=== PATIENT | male | born 1955 | race Caucasian/White ===

== ENCOUNTER 2018-04-25 21:25 | Inpatient (IN) | payer OTHER ==
[~2018-04-25] VITALS: Ht 185.4 cm; Wt 73.5 kg
--- NOTE | 2018-04-25 21:36 | ED UPPER/LOWER EXTREMITY COMPL ---
History of Present Illness General Chief Complaint: Upper Extremity Problem Stated Complaint: BIBA FROM SNF FOR R ARM "COLD TO TOUCH", Source: patient Exam Limitations: no limitations Vital Signs & Intake/Output Vital Signs & Intake/Output Vital Signs Date Time Temp Pulse Resp B/P B/P Pulse O2 O2 Flow FiO2 Mean Ox Delivery Rate 04/26 0548 98.5 105 20 144/73 100 Trach Mask 30% 04/26 0444 100 Trach Mask 40% 04/26 0405 97.2 104 20 162/84 98 Trach Mask 40% 04/26 0230 97.4 93 20 145/72 95 Trach Mask 10L 04/26 0032 97.5 93 20 139/76 95 Trach Mask 10L / 2300 97.2 92 20 142/86 95 Venti Mask 10L 04/25 2223 96 Trach Mask 10L / 2139 97.5 90 17 140/88 97 Trach Mask 10L ED Intake and Output 04/26 0000 04/25 1200 Intake Total Output Total Balance Patient 220 lb Weight Weight Estimated Measurement Method Allergies Coded Allergies: Sulfa (Sulfonamide Antibiotics) (UNKNOWN 04/26/18) enalaprilat (From VASOTEC) (UNKNOWN 04/26/18) heparin (UNKNOWN 04/26/18) Reconcile Medications Aspirin (Aspirin*) 81 MG TAB.CHEW 1 TAB G TUBE DAILY Heart (Reported) Clobazam (ONFI) 10 MG TABLET 10 MG G TUBE QPM Seizures (Reported) Dexamethasone 4 MG TABLET 1 TAB G TUBE Q6 . (Reported) Doxazosin Mesylate 2 MG TABLET 1 TAB G TUBE QPM Blood pressure (Reported) Insulin Lispro (Humalog) 100 UNIT/ML VIAL 0 SC ADD ADMIN CRITERIA diabetes ( Reported) Lacosamide (Vimpat) 200 MG TABLET 1 TAB G TUBE BID Seizures (Reported) Lanolin 100 % OINT...G. 1 OIN TOP BID Skin (Reported) Levetiracetam (Keppra) 500 MG/5 ML VIAL 1,000 MG G TUBE Q8 Seizures (Reported ) Levothyroxine Sodium 25 MCG TABLET 1 TAB G TUBE DAILY AC Hypothyroidism ( Reported) Lorazepam (Ativan) 2 MG/ML VIAL 1 ML G TUBE QPM Anxiety (Reported) Melatonin 3 MG TABLET 2 TAB G TUBE QPM Sleep (Reported) Metoprolol Tartrate 25 MG TABLET 1 TAB G TUBE Q6 Heart Health (Reported) Phenytoin Susp (Dilantin-125) 125 MG/5 ML ORAL.SUSP 200 MG G TUBE DAILY Seizures (Reported) Polyethylene Glycol 3350 (Miralax) 17 GRAM/DOSE POWDER 17 GM PO BID Constipation (Reported) mix with water, juice, soda, coffee or tea Pravastatin Sodium 20 MG TABLET 1 TAB G TUBE DAILY Heart Health (Reported) Sertraline HCl 50 MG TABLET 1 TAB G TUBE DAILY Mental Health (Reported) Triage Nurses Notes Reviewed? yes Onset: Gradual Duration: hour(s): Timing: recent history Severity: mild Pain/Injury Location: Right: Arm. Method of Injury: unknown Modifying Factors: Improves With: rest. Associated Symptoms: "felt cold" by SNF staff. HPI: 62 yo gentleman with trach/g-tube, from snf, presents with concern from snf staff for a "cold right arm," relative to his left arm. He is otherwise well. He has no fever. He is tolerating his feeds. Past History Travel History Traveled to [place] past 21 day No Medical History Any Pertinent Medical History? see below for history Neurological: seizure, brain mets, cerebral edema Cardiovascular: hypertension, hyperlipidemia Endocrine: diabetes Surgical History Surgical History: trache, g-tube Family History Hx Contributory? No Review of Systems Review of Systems Constitutional: Reports: no symptoms. EENTM: Reports: no symptoms. Respiratory: Reports: no symptoms. Cardiovascular: Reports: no symptoms. Gastrointestinal/Abdominal: Reports: no symptoms. Genitourinary: Reports: no symptoms. Musculoskeletal: Reports: no symptoms. Skin: Reports: no symptoms. Neurological/Psychological: Reports: no symptoms. Hematologic/Endocrine: Reports: no symptoms. Immunological: Reports: no symptoms. All Other Systems: Reviewed and Negative Physical Exam Physical Exam General Appearance: well developed/nourished Head: atraumatic Eyes: Bilateral: normal appearance. Ears, Nose, Throat: normal pharynx, normal ENT inspection Neck: normal inspection, trach in place Cardiovascular/Respiratory: mild rhonchi Gastrointestinal: soft non tender Hand Right: 2+ distal pulse... right arm is warm, beneath blankets, normal coloration, no loss of hair. no cyanosis. symmetric to left arm. Neurologic/Tendon: 0/5 strength on right Skin: intact, normal color, warm/dry ED Sepsis Exam Date of Focused Sepsis Exam: 04/26/18 Time of Focused Sepsis Exam: 0249 Sepsis Cardiac Exam: Tachycardia Sepsis Resp Exam: [place]chi Sepsis Cap Refill Exam: <2 Sec Sepsis Peripheral Pulse Exam: Normal Sepsis Peripheral Pulse Location: Radial Sepsis Skin Color Exam: Normal for Ethnicity Skin Temp/Moisture Exam: Warm/Dry Progress Differential Diagnosis: arterial thrombus vs other. Plan of Care: Orders Procedure Date/time Status CBC WITHOUT DIFFERENTIAL 04/27 600 Active BASIC ELECTROLYTES PLUS BUN&CR 04/27 600 Active Tube Feeding 04/26 B Active TRC EVALUATION (GEN) 04/26 458 Active Pathway - chart 04/26 458 Active House Staff 04/26 458 Active Code Status 04/26 458 Active Saline Lock 04/26 450 Active ED Holding Orders 04/26 450 Active Admit to inpatient 04/26 450 Active Vital Signs 04/26 450 Active Code Status 04/26 450 Complete Patient Data 04/26 0334 Active Intake & Output 04/26 0327 Active EKG 04/26 0253 Active BLOOD CULTURE 04/26 025 Active Add-on Test (ER Only) 04/26 0249 Active CULTURE,URINE 04/26 0120 Active VTE Mechanical Prophylaxis 04/26 UNK Active Nursing Misc 04/26 UNK Active URINALYSIS 04/25 2327 Complete COMPREHENSIVE METABOLIC PANEL 04/25 2138 Complete CBC WITHOUT DIFFERENTIAL 04/25 2138 Complete Current Medications Sig/Brian Start time Last Medication Dose Stop Time Status Admin Doxazosin Mesylate 2 MG QPM 04/26 2100 UNVr (Cardura) Lorazepam 2 MG QPM 04/26 2100 UNVr (Ativan) Melatonin 6 MG QPM 04/26 2100 UNVr (Melatonin) Phenytoin 200 MG DAILY 04/26 2000 UNVr (Dilantin) Pravastatin Sodium 20 MG 1700 04/26 1700 AC (Pravachol) Aspirin 81 MG DAILY 04/26 900 UNVr (Aspirin) Lacosamide 200 MG BID 04/26 900 UNVr (Vimpat) Polyethylene Glycol 17 GM BID 04/26 900 AC (Miralax) Sertraline HCl 50 MG DAILY 04/26 09 AC (Zoloft) Insulin Aspart 0 TIDAC 04/26 800 UNVr (NovoLOG) Levothyroxine Sodium 0.025 MG DAILY AC 04/26 07 UNVr (Synthroid) Dexamethasone 4 MG Q6 04/26 0600 UNVr (Decadron) Levetiracetam 1,000 MG Q8 04/26 06 UNVr (Keppra) Metoprolol Tartrate 25 MG Q6 04/26 06 UNVr (Lopressor) Non-Formulary 0 SEE ADMIN CRITERIA 04/26 0530 UNVr Medication (NON FORMULARY) Acetaminophen 650 MG Q6P PRN 04/26 0500 AC (Tylenol) Laboratory Tests 04/26/18 0120: Urinalysis MOD H, Urine Color YEL, Urine Clarity HAZY H, Urine pH 7.5, Ur Specific [place] <= 1.005, Urine Protein NEG, Urine Ketones NEG, Urine Nitrite POS H, Urine Bilirubin NEG, Urine Urobilinogen 0.2, Ur Leukocyte Esterase NEG, Ur Microscopic SEDIMENT EXAMINED, Urine RBC 1-3, Urine WBC 1-3 H, Urine Bacteria MANY H, Urine Mucus FEW, Urine Hemoglobin NEG, Urine Glucose NEG 04/25/18 2209: Anion Gap 7, Estimated GFR > 60, BUN/Creatinine Ratio 46.7 H, Glucose 114 H, Calcium 9.3, Total Bilirubin < 0.1 L, AST 40, ALT 109 H, Alkaline Phosphatase 320 H, Total Protein 5.7 L, Albumin 2.8 L, Globulin 2.9, Albumin/Globulin Ratio 1.0 L, CBC w Diff MAN DIFF ORDERED, RBC 3.08 L, MCV 87.9, MCH 28.9, MCHC 32.8 L, RDW 16.5 H, MPV 6.5 L, Gran % 82.6 H, Lymphocytes % 10.2 L, Monocytes % 7.0, Eosinophils % 0.1, Basophils % 0.1, Absolute Granulocytes 16.8 H, Segmented Neutrophils 86 H, Absolute Lymphocytes 2.1, Lymphocytes 6 L, Monocytes 8, Absolute Monocytes 1.4 H, Absolute Eosinophils 0, Absolute Basophils 0, Platelet Estimate INCREASED, Polychromasia 1+, Basophilic Stippling 1+, Anisocytosis 2+ Microbiology 04/26 249 BLOOD: Blood Culture - CAN Cancelled: Cancelled via OE: Per MD Decision 04/26 125 BLOOD: Blood Culture - RECD 04/26 120 URINE ROUT: Urine Culture - RECD Diagnostic Imaging: Viewed by Me: Radiology Read. Discussed w/RAD: Radiology Read. Radiology Impression: PATIENT: TRAE HERRING PRESENT AGE: 62 PATIENT ACCOUNT NO: [id number] : 54 LOCATION: [facility] ORDERING PHYSICIAN: Johan House MD SERVICE DATE: 04/25/18 EXAM TYPE: RAD - XRY-PORTABLE CHEST XRAY Addendum: Please note that a tracheostomy tube is in place rather than an endotracheal tube. This is demonstrated by review of the images from the subsequent CTA. Addendum Signed by: Piter Childers MD 04/26/1826 EXAMINATION: CHEST 1 VIEW CLINICAL INFORMATION: Leukocytosis. COMPARISON: None. TECHNIQUE: An AP view of the chest is provided. FINDINGS: The cardiac silhouette is not enlarged. An endotracheal tube is in place. The tip is approximately 6.5 cm above the aura. The mediastinal and hilar contours are unremarkable. There are neither pleural effusions nor pneumothoraces. There is cardiac opacification which obscures the medial left hemidiaphragm. The osseous structures are unremarkable. IMPRESSION: Endotracheal tube in place. Retrocardiac opacification which could be commercial sales representative of a consolidation or atelectasis. Recommendation is for a followup chest series to be obtained following treatment and/or resolution of symptoms to assure resolution of this appearance. DICTATED BY: Piter Childers MD DATE/TIME DICTATED:04/26/1819 GOLF MANAGER:SARAH DATE/TIME TRANSCRIBED:04/26/1819 CONFIDENTIAL, DO NOT COPY WITHOUT APPROPRIATE AUTHORIZATION. <Electronically signed in Other Vendor System> SIGNED BY: Piter Childers MD 04/26/1823, PATIENT: TRAE HERRING PRESENT AGE: 62 PATIENT ACCOUNT NO: [id number] : 54 LOCATION: [facility] ORDERING PHYSICIAN: Johan House MD SERVICE DATE: 04/26/18 EXAM TYPE: CAT - CT ABD & PELVIS W/O IV CONTRAS EXAMINATION: CT ABDOMEN AND PELVIS WITHOUT CONTRAST CLINICAL INFORMATION: Leukocytosis. Elevated LFTs. COMPARISON: April 25, 2018 chest radiograph and right upper extremity CTA. TECHNIQUE: Contiguous axial thin section helical images of the abdomen and pelvis were performed without oral or IV contrast. The data set was reformatted in the coronal and sagittal planes and reviewed on an independent workstation. DLP: 336 mGy-cm. FINDINGS: There is opacification within the posterior basal segment of the left lower lobe. This likely represents atelectasis, though a developing infiltrate cannot be excluded. The visualized lung bases are otherwise clear. The visualized portions of the heart are unremarkable. The liver is of normal size and attenuation without focal lesions nor intrahepatic biliary ductal dilation. A normal gallbladder is identified. There is no wall thickening or discernible pericholecystic fluid. A G-tube is in place. The spleen and pancreas are unremarkable. There is fullness to the bodies of each adrenal glands with a soft tissue focus measuring approximately 1.4 cm within the lateral limb of the right adrenal gland. Both kidneys are of normal size and attenuation without hydronephrosis or nephrolithiasis. Contrast material from the prior CTA is present within the collecting system of each kidney. There is no abdominal free fluid. There is a conglomeration of lymph nodes within the lower mid abdomen. The largest measures approximately 1.4 cm in short axis. There is mild adjacent mesenteric fat stranding. In addition, there is a soft tissue focus within the right lower quadrant on image 478/816 measuring approximately 2.6 x 3.7 cm. Normal unopacified loops of small and large bowel are identified. There is no pelvic free fluid. The urinary bladder is partially filled with contrast material. There is neither pelvic nor inguinal lymphadenopathy. Bone windows: Neither sclerotic nor lytic bone lesions are identified. IMPRESSION: Nonspecific mesenteric soft tissue focus within the right lower quadrant measuring 2.6 x 3.7 cm. There is an adjacent conglomeration of mesenteric lymph nodes. The mass, the aforementioned mass lesion may represents an enlarged lymph node. There is mild adjacent mesenteric fat stranding. This appearance is nonspecific and could be indicative of mesenteric adenitis, though that this represents lymphadenopathy secondary to a neoplastic process cannot be excluded. It is noted that a follow- up contrast-enhanced chest CT is recommended. Consider extension of the exam to include the abdomen and pelvis when the follow-up is obtained. Airspace opacification within the posterior basal segment of the left lower lobe. While this likely represents atelectasis, a developing pneumonia cannot be excluded. Recommendation is for a followup chest series to be obtained following treatment and/or resolution of symptoms to assure resolution of this appearance. DICTATED BY: Piter Childers MD DATE/TIME DICTATED:04/26/18201 GOLF MANAGER: SARAH DATE/TIME TRANSCRIBED:09/03/18 / 0202 CONFIDENTIAL, DO NOT COPY WITHOUT APPROPRIATE AUTHORIZATION. <Electronically signed in Other Vendor System> SIGNED BY: Piter Childers MD 04/26/18 0216, PATIENT: TRAE HERRING PRESENT AGE: 62 PATIENT ACCOUNT NO: [id number] : LOCATION: [facility] ORDERING PHYSICIAN: Johan House MD SERVICE DATE: 04/25/18 EXAM TYPE: CAT - CT UPPER EXT ANGIOGRAM EXAMINATION: CT ANGIOGRAM UPPER EXTREMITY, RIGHT CLINICAL INFORMATION: Decreased pulses on the right. COMPARISON: Same day chest radiograph. TECHNIQUE: Contiguous helical images of the right upper extremity, including the right hemithorax, were obtained following the administration of 95 cc of Optiray 320. Multiplanar reconstructions were performed. 3-D reconstructions will be performed at a later time at an independent workstation. Following creation of the 3-D reconstructions, they will be reviewed by a member of the IR staff with an addendum issued. DLP: 384 mGy-cm FINDINGS: A tracheostomy tube is in place. The tip is approximately 2 cm above the aura. Partially visualized on image 1/154 of series 6 is a right hilar or suprahilar soft tissue focus measuring approximately 2 cm in greatest dimension superior to this best demonstrated on image of series 5 is an approximately 2.0 x 1.5 cm right suprahilar parenchymal mass. There is minimal right apical emphysema demonstrable. The visualized aortic arch is of normal caliber. There is appropriate contrast opacification of the great vessels. The right subclavian, axillary, brachial artery, ulnar and radial arteries are of normal caliber and opacification following contrast administration without demonstrable filling defects. IMPRESSION: Appropriate contrast opacification of the great vessels and arteries of the right upper extremity without demonstrable filling defects. However, please note that ultrasound isn't optimal modality for evaluation of the arteries of the upper extremity. 3-D reconstructions will be performed on an independent workstation. The images will be reviewed by an a member of the IR staff within addendum issued. Partially visualized is a right hilar or suprahilar soft tissue focus measuring approximately 2 cm. There is an additional likely parenchymal soft tissue focus superior to this. The appearance is worrisome for right hilar lymphadenopathy and a parenchymal lung mass lesion. Recommendation is for a follow-up contrast-enhanced chest CT to be performed. In consideration of the recent contrast bolus and the absolute need for the subsequent chest CT to be performed with contrast, recommendation is for the follow-up chest CT with contrast to be performed later in the day and following correlation with the patient's renal function and not to be necessarily performed at this time (though the need for delayed is not diminish the importance of the follow-up examination being performed.) DICTATED BY: Piter Childers MD DATE/TIME DICTATED:04/26/1842 GOLF MANAGER:SARAH DATE/TIME TRANSCRIBED:04/26/1842 CONFIDENTIAL, DO NOT COPY WITHOUT APPROPRIATE AUTHORIZATION. <Electronically signed in Other Vendor System> SIGNED BY: Piter Childers MD 04/26/1855 Initial ED EKG: sinus no acute changes. Departure Departure Disposition: STILL A PATIENT Condition: Stable Clinical Impression Primary Impression: Sepsis Secondary Impressions: Abdominal mass, Circulation problem, Lung mass, Pneumonia Referrals: Diego Mcmullen APRN Departure Forms: Customer Survey General Discharge Information Admission Note Spoke With: Edgar Balbuena MD Documentation of Exam: Documentation of any treatments & extenuating circumstances including Concerns Regarding Discharge (functional status, medication knowledge or non-compliance, living conditions, etc.) that warrant an admission rather than observation: pt presents with a complicated presentation. Initially w/ concern for arterial occlusion of right arm, which resulted in right arm angiogram. Pt found to have pneumonia and meets criteria for sepsis, with associated signifciant morbidities of tracheostomy. Pt also with lung mass and abd mass, which has not been well characterized. Her merits iv fluids, iv abx, and chest/abd/pelvic ct with iv contrast (unable to have iv contrast due to his contrast exam tonight). Critical Care Note Critical Care Note Critical Care Time: 30-74 min
[2018-04-25 22:27] LABS: ABSOLUTE BASOPHIL COUNT 0 /CUMM (0.0-0.2); ABSOLUTE EOSINOPHIL COUNT 0 /CUMM (0.0-0.7); ABSOLUTE GRANULOCYTE CT 16.8 /CUMM (1.4-6.5); ABSOLUTE LYMPH COUNT 2.1 /CUMM (1.2-3.4); ABSOLUTE MONOCYTE COUNT 1.4 /CUMM (0.10-0.60); BASOPHIL % 0.1 % (0.0-2.0); EOSINOPHIL % 0.1 % (0-5); GRANULOCYTE % 82.6 % (42.2-75.2); MEAN CORPUSCULAR HGB 28.9 PG (27.0-31.0); MEAN CORPUSCULAR HGB CONC 32.8 G/DL (33.0-37.0); MEAN CORPUSCULAR VOLUME 87.9 FL (80.0-94.0); MEAN PLATELET VOLUME 6.5 FL (7.4-10.4); PLATELET COUNT 666 /CUMM (130-400); RBC DISTRIBUTION WIDTH 16.5 % (11.5-14.5); RED BLOOD CELL CT 3.08 /CUMM (4.70-6.10); WHITE BLOOD CELL COUNT 20.4 /CUMM (4.8-10.8)
--- NOTE | 2018-04-26 00:24 | RADIOLOGY REPORT ---
EXAMINATION: CHEST 1 VIEW CLINICAL INFORMATION: Leukocytosis. COMPARISON: None. TECHNIQUE: An AP view of the chest is provided. FINDINGS: The cardiac silhouette is not enlarged. An endotracheal tube is in place. The tip is approximately 6.5 cm above the aura. The mediastinal and hilar contours are unremarkable. There are neither pleural effusions nor pneumothoraces. There is cardiac opacification which obscures the medial left hemidiaphragm. The osseous structures are unremarkable. IMPRESSION: Endotracheal tube in place. Retrocardiac opacification which could be service support representative of a consolidation or atelectasis. Recommendation is for a followup chest series to be obtained following treatment and/or resolution of symptoms to assure resolution of this appearance.
--- NOTE | 2018-04-26 00:56 | CT SCAN REPORT ---
EXAMINATION: CT ANGIOGRAM UPPER EXTREMITY, RIGHT CLINICAL INFORMATION: Decreased pulses on the right. COMPARISON: Same day chest radiograph. TECHNIQUE: Contiguous helical images of the right upper extremity, including the right hemithorax, were obtained following the administration of 95 cc of Optiray 320. Multiplanar reconstructions were performed. 3-D reconstructions will be performed at a later time at an independent workstation. Following creation of the 3-D reconstructions, they will be reviewed by a member of the IR staff with an addendum issued. DLP: 384 mGy-cm FINDINGS: A tracheostomy tube is in place. The tip is approximately 2 cm above the aura. Partially visualized on image 1/154 of series 6 is a right hilar or suprahilar soft tissue focus measuring approximately 2 cm in greatest dimension superior to this best demonstrated on image of series 5 is an approximately 2.0 x 1.5 cm right suprahilar parenchymal mass. There is minimal right apical emphysema demonstrable. The visualized aortic arch is of normal caliber. There is appropriate contrast opacification of the great vessels. The right subclavian, axillary, brachial artery, ulnar and radial arteries are of normal caliber and opacification following contrast administration without demonstrable filling defects. IMPRESSION: Appropriate contrast opacification of the great vessels and arteries of the right upper extremity without demonstrable filling defects. However, please note that ultrasound isn't optimal modality for evaluation of the arteries of the upper extremity. 3-D reconstructions will be performed on an independent workstation. The images will be reviewed by an a member of the IR staff within addendum issued. Partially visualized is a right hilar or suprahilar soft tissue focus measuring approximately 2 cm. There is an additional likely parenchymal soft tissue focus superior to this. The appearance is worrisome for right hilar lymphadenopathy and a parenchymal lung mass lesion. Recommendation is for a follow-up contrast-enhanced chest CT to be performed. In consideration of the recent contrast bolus and the absolute need for the subsequent chest CT to be performed with contrast, recommendation is for the follow-up chest CT with contrast to be performed later in the day and following correlation with the patient's renal function and not to be necessarily performed at this time (though the need for delayed is not diminish the importance of the follow-up examination being performed.)
--- NOTE | 2018-04-26 02:16 | CT SCAN REPORT ---
EXAMINATION: CT ABDOMEN AND PELVIS WITHOUT CONTRAST CLINICAL INFORMATION: Leukocytosis. Elevated LFTs. COMPARISON: April 25, 2018 chest radiograph and right upper extremity CTA. TECHNIQUE: Contiguous axial thin section helical images of the abdomen and pelvis were performed without oral or IV contrast. The data set was reformatted in the coronal and sagittal planes and reviewed on an independent workstation. DLP: 336 mGy-cm. FINDINGS: There is opacification within the posterior basal segment of the left lower lobe. This likely represents atelectasis, though a developing infiltrate cannot be excluded. The visualized lung bases are otherwise clear. The visualized portions of the heart are unremarkable. The liver is of normal size and attenuation without focal lesions nor intrahepatic biliary ductal dilation. A normal gallbladder is identified. There is no wall thickening or discernible pericholecystic fluid. A G-tube is in place. The spleen and pancreas are unremarkable. There is fullness to the bodies of each adrenal glands with a soft tissue focus measuring approximately 1.4 cm within the lateral limb of the right adrenal gland. Both kidneys are of normal size and attenuation without hydronephrosis or nephrolithiasis. Contrast material from the prior CTA is present within the collecting system of each kidney. There is no abdominal free fluid. There is a conglomeration of lymph nodes within the lower mid abdomen. The largest measures approximately 1.4 cm in short axis. There is mild adjacent mesenteric fat stranding. In addition, there is a soft tissue focus within the right lower quadrant on image 478/816 measuring approximately 2.6 x 3.7 cm. Normal unopacified loops of small and large bowel are identified. There is no pelvic free fluid. The urinary bladder is partially filled with contrast material. There is neither pelvic nor inguinal lymphadenopathy. Bone windows: Neither sclerotic nor lytic bone lesions are identified. IMPRESSION: Nonspecific mesenteric soft tissue focus within the right lower quadrant measuring 2.6 x 3.7 cm. There is an adjacent conglomeration of mesenteric lymph nodes. The mass, the aforementioned mass lesion may represents an enlarged lymph node. There is mild adjacent mesenteric fat stranding. This appearance is nonspecific and could be indicative of mesenteric adenitis, though that this represents lymphadenopathy secondary to a neoplastic process cannot be excluded. It is noted that a follow-up contrast-enhanced chest CT is recommended. Consider extension of the exam to include the abdomen and pelvis when the follow-up is obtained. Airspace opacification within the posterior basal segment of the left lower lobe. While this likely represents atelectasis, a developing pneumonia cannot be excluded. Recommendation is for a followup chest series to be obtained following treatment and/or resolution of symptoms to assure resolution of this appearance.
--- NOTE | 2018-04-26 03:12 | History & Physical ---
Sneha Almanza 04/26/18 0312: General Information and HPI MD Statement: I have seen and personally examined TRAE HERRING and documented this H&P. The patient is a 62 year old M who presented with a patient stated chief complaint of [cold right arm X1 day]. Source of Information: patient Exam Limitations: physical impairment History of Present Illness: 62-year-old male with a past medical history of seizures, known brain metastases , hypertension, hyperlipidemia, COPD, BPH, urinary incontinence, GERD, right- sided hemiparesis was brought in by ambulance from [facility] for right being cold X1 day. He has a tracheostomy and a G-tube. Patient was in his usual state of health until 2 days ago his right arm felt cold to the nurses at the [facility]. The patient was sent to the [facility] emergency department by ambulance for evaluation, and CT angiogram/Doppler of the arm. He was unable to give detailed history this patient had a tracheostomy and was confused. He did not answer our questions even in yes or no. 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 [facility] Services at Home: Nursing, Tube Feedings ETOH Use: denies use Review of Systems Review of Systems Constitutional: Reports: see HPI (unable to obtain). Exam & Diagnostic Data Last 24 Hrs of Vital Signs/I&O Vital Signs Date Time Temp Pulse Resp B/P B/P Pulse O2 O2 Flow FiO2 Mean Ox Delivery Rate 04/26 0548 98.5 105 20 144/73 100 Trach Mask 30% 04/26 0444 100 Trach Mask 40% 04/26 0405 97.2 104 20 162/84 98 Trach Mask 40% 04/26 0230 97.4 93 20 145/72 95 Trach Mask 10L 04/26 0032 97.5 93 20 139/76 95 Trach Mask 10L 04/25 2300 97.2 92 20 142/86 95 Venti Mask 10L 04/25 2223 96 Trach Mask 10L 04/25 2139 97.5 90 17 140/88 97 Trach Mask 10L Intake & Output 04/26 0800 0903 0000 04/25 1600 Intake Total 1250 Output Total Balance 1250 Intake, IV 1250 Patient 220 lb Weight Weight Estimated Measurement Method Physical Exam General Appearance No Acute Distress, awake, AAOX0 Skin No Rashes, No Breakdown, No Significant Lesion Skin Temp/Moisture Exam: Cool/Dry Sepsis Skin Exam (color): Normal for Ethnicity HEENT Atraumatic, PERRLA, Mucous Membr. moist/pink Neck Supple, No JVD, No thryomegaly, +2 Carotid Pulse wo Bruit Cardiovascular Regular Rate, Normal S1, Normal S2, No Murmurs Lungs Clear to Auscultation, Normal Air Movement Abdomen Normal Bowel Sounds, Soft, No Tenderness, No Hepatospenomegaly, No Masses, peg tube Neurological rt arm power 1/5,rt leg power 1/5. left arm power 5/5, left leg power 4/5 Extremities No Clubbing, No Cyanosis, No Edema, Normal Pulses, No Tenderness/ Swelling, cool to touch ponce rt arm Vascular Normal Pulses, Pulses Symmetrical Assessment/Plan Assessment: 62-year-old male with a past medical history of seizures, hypertension, hyperlipidemia, COPD, BPH, urinary incontinence, GERD, right-sided hemiparesis was brought in by ambulance from [facility] for right being cold 1 day. He has a tracheostomy and a G-tube. Vitals on admission: Temperature 97.5, pulse 93, respiratory rate 20, blood pressure 139/76, 95% on 10 L trach mask labs WBC 20.4, hemoglobin 8.9, hematocrit 27, platelets 666, sodium 130, potassium 4.1, chloride 94, bicarb 28, BUN 14, creatinine 0.3, ALT 109, AST 40, alk phos 320, total protein 5.7, albumin 2.8 urinalysis: hazy, nitrite positive, WBC 1-3, bacteria many Problems: 1. Possible aspiration pneumonia 2. right sided hemiplegia 3. UTI?? 4.history of brain metastases-primary unknown at this time 5.hyponatremia 6.hypertension 7. DM Assessment and plan: #Patient's chest x-ray showing retrocardiac opacification/consolidation/ atelectasis. Also has a leukocytosis with thrombocytosis. Possible aspiration pneumonia given his trach tube when G-tube feeding and mental status. #His urine is hazy, nitrite positive, WBC 13, many bacteria. Possible UTI?? #Imaging shows right lung hilar soft tissue focus of 2 cm in size, atelectasis of the left lower lobe, soft tissue focus in the right lower quadrant of the abdomen 2.6 into 3.7 cm likely lymph node with fat stranding. -Admit to general medicine floor -Continue IV fluids -Keep n.p.o. -TRC/nebs -Accu-Cheks and sliding scale insulin -Obtain records from [facility] Diet: Jevity 1.2 through g tube DVT prophylaxis: Subcu heparin and Alps CODE STATUS: Full code As Ranked By This Provider Problem List: 1. Brain metastases 2. Abdominal mass 3. Lung mass Core Measures/Misc (05/10) Acute Coronary Syndrome ACS Diagnosis: No Congestive Heart Failure Congestive Heart Failure Diagnosis No Cerebrovascular Accident CVA/TIA Diagnosis: No VTE (View Protocol) VTE Risk Factors Age>40 No Mechanical VTE Prophylaxis d/t N/A MechProphylax Ordered No VTE Pharm Prophylaxis d/t NA PharmProphylax ordered Sepsis (View protocol) Sepsis Present: No If YES complete Sepsis Event Note If YES complete Sepsis Event Note Edgar Balbuena MD 04/26/18 0604: Core Measures/Misc (05/10) Sepsis (View protocol) If YES complete Sepsis Event Note If YES complete Sepsis Event Note Attending MD Review Statement Attending Statement Attending MD Statement: examined this patient, discuss w/resident/PA/RADIOISOTOPE TECHNICIAN, agreed w/resident/PA/RADIOISOTOPE TECHNICIAN, reviewed EMR data (avail), discussed with nursing, amended to note Attending Assessment/Plan: 62-year-old male [facility] of possible upper extremity ischemia. He is bedbound, status post trach is unable to provide any history. Records from the [facility] shows that he has brain metastases. Primary cancer was not mentioned in the notes. On evaluation here in the emergency room. No evidence of ischemia. CT angiogram was obtained that showed no vascular occlusion. Incidentally noted on the CT angiogram of the lung mass. Laboratory data showed abnormal LFTs so the ER decided to pursue an abdominal CT as well. Abdominal CT also shows a hepatic mass. Patient obviously has a history of some form of malignancy as records from the [facility] states that he has brain metastases. Chest x-ray is suggestive of a retrocardiac opacity. Also found to have elevated white cell count of 20,000. He was started on IV antibiotics by the ER and admitted for management of pneumonia. Will need to obtain more records from the [facility]. [facility] 04/26/18 0607: General Information and HPI Allergies/Medications Home Med list Aspirin (Aspirin*) 81 MG TAB.CHEW 1 TAB G TUBE DAILY Heart (Reported) Clobazam (ONFI) 10 MG TABLET 10 MG G TUBE QPM Seizures (Reported) Dexamethasone 4 MG TABLET 1 TAB G TUBE Q6 . (Reported) Doxazosin Mesylate 2 MG TABLET 1 TAB G TUBE QPM Blood pressure (Reported) Insulin Lispro (Humalog) 100 UNIT/ML VIAL 0 SC ADD ADMIN CRITERIA diabetes ( Reported) Lacosamide (Vimpat) 200 MG TABLET 1 TAB G TUBE BID Seizures (Reported) Lanolin 100 % OINT...G. 1 OIN TOP BID Skin (Reported) Levetiracetam (Keppra) 500 MG/5 ML VIAL 1,000 MG G TUBE Q8 Seizures (Reported ) Levothyroxine Sodium 25 MCG TABLET 1 TAB G TUBE DAILY AC Hypothyroidism ( Reported) Lorazepam (Ativan) 2 MG/ML VIAL 1 ML G TUBE QPM Anxiety (Reported) Melatonin 3 MG TABLET 2 TAB G TUBE QPM Sleep (Reported) Metoprolol Tartrate 25 MG TABLET 1 TAB G TUBE Q6 Heart Health (Reported) Phenytoin Susp (Dilantin-125) 125 MG/5 ML ORAL.SUSP 200 MG G TUBE QPM Seizures (Reported) Phenytoin Susp (Dilantin-125) 125 MG/5 ML ORAL.SUSP 150 MG G TUBE DAILY Seizures (Reported) Polyethylene Glycol 3350 (Miralax) 17 GRAM/DOSE POWDER 17 GM PO BID Constipation (Reported) mix with water, juice, soda, coffee or tea Pravastatin Sodium 20 MG TABLET 1 TAB G TUBE DAILY Heart Health (Reported) Sertraline HCl 50 MG TABLET 1 TAB G TUBE DAILY Mental Health (Reported) Core Measures/Misc (05/10) Sepsis (View protocol) If YES complete Sepsis Event Note If YES complete Sepsis Event Note Resident Review Statement Resident Statement: examined this patient, discussed with internet ecommerce specialist, reviewed EMR data (avail) Other Findings: 62 yo M with PMH of diabetes, seizures, hypothyroidism, hypertension, BPH, OA, COPD s/p tracheostomy (on 28% oxygen) due to multiple intubations in the past, generalized anxiety disorder, right hemiplegia, metastatic brain disease with unknown primary malignancy was sent to the ED from [facility] for evaluation of ' cold right arm'. History is patchy and has been obtained from [facility] nursing staff as the patient is unable to provide any history. The nurse states that earlier tonight they felt the patient's upper extremity to be cool to touch. An arterial doppler was unable to be performed due to holiday so the patient was sent to ER for further evaluation. He has had no fevers or chills while at the facility, however, a sputum culture was sent 3 days ago as it was noticed his tracheostomy was draining foul smelling discharge, of which the results are still pending. ROS: unable to be obtained. Physical Exam: General Appearance: alert, awake, mild distress, Head: atraumatic, normal appearance Eyes: bilateral: normal appearance and PERRLA. Ears, Nose, Throat, Mouth: hearing grossly normal, tracheostomy Respiratory: normal breath sounds Cardiovascular: regular rate/rhythm, normal S1 and S2, no murmurs Gastrointestinal: soft, nondistended, PEG tube Extremities: no edema, cool to touch Skin: normal inspection Labs showed an significantly elevated white count to 20.4 (likely secondary to steroids), H&H of 8.9 & 27, Plt 666, Na 130, Cl 94, ALT 109, ALP 320. UA is positive for nitrites with many bacteria and 1-2 WBC CXR showed retrocardiac opacification which could be customer service representative of a consolidation or atelectasis. Right upper extremity CTA showed appropriate contrast opacification of the great vessels without demonstrable filling defects. Also showed ? right hilar lymphadenopathy and a parenchymal lung mass lesion. Assessment: 1. Possible Pneumonia - the patient has a white count which is likely confounded by his chronic steroid use. He does however, have a retrocardiac opacity. As per nursing staff at [facility] the patient had foul smelling discharge from his tracheostomy for which a culture was sent. 2. ? UTI - His UA is suggestive of UTI, however, the patient is unable to verbalize his symptoms. Plan: * Admit patient to general medicine floor. * Start IV Unasyn 3gm q6. * Continue oxygen supplementation to maintain target sats > 92%. * TRC/nebs as needed. * Follow blood and urine cultures. * Diet: On Jevity 1.2 * DVT Prophylaxis: SC Lovenox * Code: Full Code
[2018-04-26] MEDS ORDERED: METOPROLOL TART25 M1 G TUBE (04:59)
[2018-04-26] MEDS ORDERED: DOXAZOSIN MESYLA2 M1 G TUBE (05:00)
[2018-04-26] MEDS ORDERED: MELATONIN3 M4 G TUBE (05:02)
[2018-04-26] MEDS ORDERED: ATIVAN2 MG/1 ML G TUBE (05:02)
[2018-04-26] MEDS ORDERED: ONFI10 M1 G TUBE (05:04)
[2018-04-26] MEDS ORDERED: MIRALAX119 GM PO (05:09)
[2018-04-26] MEDS ORDERED: LANOLIN397 GM TOP (05:10)
[2018-04-26] MEDS ORDERED: VIMPAT200 M1 G TUBE (05:10)
[2018-04-26] MEDS ORDERED: KEPPRA500 MG/5 M G TUBE (05:11)
[2018-04-26] MEDS ORDERED: DEXAMETHASONE4 M1 G TUBE (05:12)
[2018-04-26] MEDS ORDERED: ASPIRIN81 M4 G TUBE (05:13)
[2018-04-26] MEDS ORDERED: LEVOTHYROXINE25 MCG G TUBE (05:13)
[2018-04-26] MEDS ORDERED: DILANTIN-1125 MG/51 G TUBE ×2 (05:14→06:15)
[2018-04-26] MEDS ORDERED: PRAVASTATIN SOD20 M2 G TUBE (05:14)
[2018-04-26] MEDS ORDERED: SERTRALINE HCL50 MG G TUBE (05:15)
[2018-04-26] MEDS ORDERED: HUMALOG100 UNIT/2 SC (05:18)
[2018-04-26 08:30] VITALS: BP 168/86
[2018-04-26 14:06] VITALS: BP 142/78
--- NOTE | 2018-04-26 14:41 | PN- Att Addend ---
Attending Addendum Attending Brief Note 62M PMH eizures, known brain metastases, hypertension, hyperlipidemia, COPD, BPH , urinary incontinence, GERD, right-sided hemiparesis sent in from [facility] for cough and chills, found to have evidence of left sided aspiration pneumonia. There was some question of possible limb ischemia on admission however there is no clinical evidence of this and CTA was negative. The patient has wide metastatic disease with unknown primary. He has difficulty with participating with physical therapy due to his hemiparesis. He is currently stable. Plan - Continue on general medicine - Continue tube feeds - Palliative care and social work consults - Continue Unasyn - Sputum culture - Continue home medications - DVT PPx
[2018-04-26 22:30] VITALS: BP 110/62
--- NOTE | 2018-04-27 06:31 | Event Note ---
Event Note Event Note: Situation: BLOOD CX GREW GRAM NEG RODS Background: 62-year-old male with a past medical history of seizures, known brain metastases, hypertension, hyperlipidemia, COPD, BPH, urinary incontinence, GERD, right-sided hemiparesis was brought in by ambulance from [facility] for right being cold X1 day. He has a tracheostomy and a G- tube. 1. Possible aspiration pneumonia 2. right sided hemiplegia 3. UTI?? 4.history of brain metastases-primary unknown at this time Result: WE d/c unasyn and started ceftriaxone 1g daily.
[2018-04-27 07:21] VITALS: BP 118/62
--- NOTE | 2018-04-27 07:30 | PN- Housestaff ---
David ANDREW,[facility] 04/27/18 0730: Subjective Follow-up For: Right upper extremity abnormal physical exam pna UTI Subjective: Seen and examined at [facility]. Pt is sleepy but awoken by sternal rub. He is non verbal but able to follow verbal commands (able to squeeze hand) Overnight report of gram negative bacteremia and gram negative rods in urine is noted. Still on soft restratints x2. Review of Systems Constitutional: Reports: see HPI. Objective Last 24 Hrs of Vital Signs/I&O Vital Signs Date Time Temp Pulse Resp B/P B/P Pulse O2 O2 Flow FiO2 Mean Ox Delivery Rate 04/28 06 98.0 85 20 120/72 95 Room Air 04/28 0514 85 120/71 04/28 0438 94 Trach Mask 30% 04/28 0000 102/64 04/28 0000 94 Trach Mask 04/27 2345 74 102/64 04/27 2130 97.0 81 19 150/78 95 Room Air 04/27 1844 97 Trach Mask 30% 04/27 1722 76 114/60 04/27 1600 98 Trach Mask 30% 04/27 1459 97.9 75 18 113/63 99 Trach Mask 04/27 1133 89 118/62 04/27 0821 93 Trach Mask 30% Intake & Output 04/28 1600 04/28 0800 04/28 0000 Intake Total 440 80 Output Total Balance 440 80 Intake, Tube 240 80 Feeding Intake, Tube 200 Irrigant Number 6 Bowel Movements Patient 72.773 kg Weight Weight Bed scale Measurement Method Physical Exam General Appearance: lethargic, awoken by sternal rub. Cardiovascular: Regular Rate, Normal S1, Normal S2 Lungs: rhonchi Abdomen: Normal Bowel Sounds, Soft Assessment/Plan Assessment: 62-year-old gentleman with a past medical history significant for hypertension, hyperlipidemia, BPH, COPD, type 2 diabetes, anxiety, recent seizures with imaging remarkable for multiple brain lesions, mesenteric ischemia status post SMA thrombectomy and bowel resection in December 2017, tracheostomy, PEG placement, biopsy-proven anesthetics, cell carcinoma of unknown origin was brought in from senior care facility for evaluation of right upper extremity coldness and absence radial pulses. Associated symptoms included chills. His ED workup was remarkable for gram-negative UTI and gram-negative bacteremia. Chest x-ray was suggestive of a retrocardial left lung pneumonia. Patient was admitted to general medicine floor for treatment and management of UTI, bacteremia and pneumonia. Impression * Clinical finding of cold left upper extremity with absent radial pulse. With CTA benign for any arterial compromise. * Pneumonia. Patient is reported at senior care facility to have head putrid sputum, cough and now has radiological finding suggestive of left lobe pneumonia. * UTI. Urine culture is growing gram-negative rods. * Bacteremia. Gram-negative pathogen found on blood cultures. Most probable from urinary source. Assessment and plan Overall patient clinical status is poor, when considering his metastatic brain lesions, tracheostomy use, and PEG use. he appears sleepy tired and lethargic. He has recently received gamma knife radiation for his multiple brain lesions. For now he is presenting with acute issues of UTI and pneumonia Which we are actively treating with ceftriaxone and azithromycin. We had an extensive discussion with patient significant other who is also the POA (Ms. Reed). She is well aware of the poor prognosis and stated that there was discussion of hospice. Currently the primary source of patient malignancy is not known. However given that the patient has had extensive workup a year in [place] and is actually being followed by neural oncologist at [facility], will defer any further workup and instead obtained records from this institutions. He is also noted to have guaiac positive stools and given the drop of hemoglobin that is a high suspicious that malignancy has to be ruled out given that the patient has not had any colonoscopy and is 62 years old. Will obtain hematology oncology consult for further recommendation on how to proceed. If patient POA chooses further workup which will include colonoscopy and endoscopy then will obtain GI consult. However, given the patient poor status and the metastatic lesions he is appropriate for discussion of palliative/hospice. We will discuss this issue tomorrow in detail with the patient's POA. For now we will continue the current treatment of UTI and pneumonia. Problem List: 1. Pneumonia 2. Brain metastases 3. UTI (urinary tract infection) Pain Ratin Pain Location: none Pain Goal: Remain pain free Pain Plan: per pathway Tomorrow's Labs & Rationales: nicolasa Conde MD,Jessie 04/27/18 0946: Attending MD Review Statement Attending Statement Attending MD Statement: examined this patient, discuss w/resident/PA/DUST MOP MAKER, agreed w/resident/PA/DUST MOP MAKER, reviewed EMR data (avail), discussed with nursing, discussed with case mgmt, reviewed images, amended to note Attending Assessment/Plan: Patient seen and examined, he is non verbel. He has a Trach and a PEG. Patient is admitted from a NH with PNA, UTI, bacteremia and also has metastatic diseas with reported mets to brain with unknown primary. Vital Signs Date Time Temp Pulse Resp B/P B/P Pulse O2 O2 Flow FiO2 Mean Ox Delivery Rate 04/27 821 93 Trach Mask 30% 04/27 0721 98.6 89 24 118/62 94 04/27 0637 88 118/62 04/27 0054 98 Trach Mask 30% 04/27 0034 100 104/60 04/27 0000 98 Trach Mask 30% 04/26 2230 98.3 80 18 110/62 99 Trach Mask 04/26 1713 94 148/82 04/26 1447 95 Trach Mask 30% 04/26 1406 97.3 91 18 142/78 100 Trach Mask 04/26 1213 90 150/85 04/26 1202 Trach Mask 30% on exam; lethargic but arousable. no verbel. cv; s1, s2, rrr resp; scattered wheeze abd; soft, bs+, + PEG tube ext; no edema vacs: b/L radial pulse could not be felt and pt has b/l cold hands. Laboratory Tests 04/27 902 Chemistry Sodium Pending Potassium Pending Chloride Pending Carbon Dioxide Pending Anion Gap Pending BUN Pending Creatinine Pending BUN/Creatinine Ratio Pending Hematology CBC w Diff Pending WBC Pending RBC Pending Hgb Pending Hct Pending MCV Pending MCH Pending MCHC Pending RDW Pending Plt Count Pending MPV Pending A/P: 62 y/o M with pmh sig for seizures, known brain metastases, hypertension, hyperlipidemia, COPD, BPH, urinary incontinence, GERD, right-sided hemiparesis initially brought in with cold rue, CTA TUE was neg for any vascular compromise but did show sig hiar lymphadenopathy. Pt is admitted with PNA, UTI, Bacteremia and has metastatic disease with unknown primary and reported brain mets. Also has hyponatremia and leukocytosis. Currently treated with IV CTX and Azithro. Will follow up on cultures. Will consult nutrition for TFs via PEG. Continue other home meds including anti- seizure regimen. Na improving. Will follow up on WBC count. WIll monitor LFts. Will call NH and patient's press set up person to get further information about goals of care and patient's code status. Met with patient significant other Rupinder Mata in the hospital. She has changed CODE STATUS to DNR/DNI but not ready for hospice yet. She wants the rest of the treatment to be continued. She provided information about patient's primary care doctor, patient's past history and previous hospitalizations. Then I called patient's primary care doctor . Patient was found to have metastatic brain disease and for that he received gamma knife. He then developed mesenteric ischemia and received colectomy. Patient ended up with tracheostomy and PEG tube secondary to prolonged intubation from multiple GI surgeries. His neuro oncologist is Dr. Colin Santos at [facility]. We will try to get some records from [facility] in [facility]. Patient's iron updated the patient's stool is guaiac positive. There is also drop in his H&H. We will continue to monitor and there is a further drop in patient will get transfusion and GI consult. Will also consult oncology. We will continue the current antibiotics and follow up on cultures. Case management to find out about services covered by patient's insurance.
[2018-04-27 09:53] LABS: ABSOLUTE BASOPHIL COUNT 0 /CUMM (0.0-0.2); ABSOLUTE EOSINOPHIL COUNT 0 /CUMM (0.0-0.7); ABSOLUTE GRANULOCYTE CT 16.3 /CUMM (1.4-6.5); ABSOLUTE LYMPH COUNT 2.2 /CUMM (1.2-3.4); ABSOLUTE MONOCYTE COUNT 2.3 /CUMM (0.10-0.60); BASOPHIL % 0 % (0.0-2.0); EOSINOPHIL % 0.2 % (0-5); GRANULOCYTE % 78.3 % (42.2-75.2); HEMATOCRIT 23.5 % (42-52); MEAN CORPUSCULAR HGB 28.7 PG (27.0-31.0); MEAN CORPUSCULAR HGB CONC 32.6 G/DL (33.0-37.0); MEAN CORPUSCULAR VOLUME 88.1 FL (80.0-94.0); MEAN PLATELET VOLUME 6.7 FL (7.4-10.4); PLATELET COUNT 565 /CUMM (130-400); RBC DISTRIBUTION WIDTH 16.8 % (11.5-14.5); RED BLOOD CELL CT 2.66 /CUMM (4.70-6.10); WHITE BLOOD CELL COUNT 20.8 /CUMM (4.8-10.8)
[2018-04-27 14:59] VITALS: BP 113/63
[2018-04-27 21:30] VITALS: BP 150/78
[2018-04-28] VITALS: BP 102/64
[2018-04-28 06:26] VITALS: BP 120/72
--- NOTE | 2018-04-28 07:06 | Cons- Oncology ---
General Information and HPI Consulting Request Date of Consult: 04/28/18 Requested By: Jessie Conde MD Reason for Consult: brain metastases Source of Information: old records Exam Limitations: clinical condition History of Present Illness: Mr. 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 His right arm was noted to be cold on day of admission. He was also noted to have chills. He had CTA of the right upper extremity and was noted to be relatively unremarkable except for possible right hilar or suprahilar soft tissue. Since admission, he was noted to have UTI and GNR bacteremia. He is currently being treated with azithromycin and ceftriaxone. His course prior to admission has been complicated and been hospitalized multiple times at [facility] (12/20/2017-01/01/2018, 01/04/2018-02/02/2018, 02/08/2018-02/10, 02/12/2018-02/15/2018, and 03/10/2018-03/31/2018). He initially presented with seizure at home. CT demonstrated intracranial lesions with vasogenic edema. He was trated with gamma knife. He was seen by oncology at [facility] on 03/11/2018 and was felt to be no a candidate for systemic therapy given clinical condition. Recommendation at that time was hospice. He had multiple new lesions on MRI which was not amenable to more radiation at the time. Allergies/Medications Allergies: Coded Allergies: Sulfa (Sulfonamide Antibiotics) (UNKNOWN 04/26/18) enalaprilat (From VASOTEC) (UNKNOWN 04/26/18) heparin (UNKNOWN 04/26/18) Home Med List: Aspirin (Aspirin*) 81 MG TAB.CHEW 1 TAB G TUBE DAILY Heart (Reported) Clobazam (ONFI) 10 MG TABLET 10 MG G TUBE QPM Seizures (Reported) Dexamethasone 4 MG TABLET 1 TAB G TUBE Q6 . (Reported) Doxazosin Mesylate 2 MG TABLET 1 TAB G TUBE QPM Blood pressure (Reported) Insulin Lispro (Humalog) 100 UNIT/ML VIAL 0 SC ADD ADMIN CRITERIA diabetes ( Reported) Lacosamide (Vimpat) 200 MG TABLET 1 TAB G TUBE BID Seizures (Reported) Lanolin 100 % OINT...G. 1 OIN TOP BID Skin (Reported) Levetiracetam (Keppra) 500 MG/5 ML VIAL 1,000 MG G TUBE Q8 Seizures (Reported ) Levothyroxine Sodium 25 MCG TABLET 1 TAB G TUBE DAILY AC Hypothyroidism ( Reported) Lorazepam (Ativan) 2 MG/ML VIAL 1 ML G TUBE QPM Anxiety (Reported) Melatonin 3 MG TABLET 2 TAB G TUBE QPM Sleep (Reported) Metoprolol Tartrate 25 MG TABLET 1 TAB G TUBE Q6 Heart Health (Reported) Phenytoin Susp (Dilantin-125) 125 MG/5 ML ORAL.SUSP 200 MG G TUBE QPM Seizures (Reported) Phenytoin Susp (Dilantin-125) 125 MG/5 ML ORAL.SUSP 150 MG G TUBE DAILY Seizures (Reported) Polyethylene Glycol 3350 (Miralax) 17 GRAM/DOSE POWDER 17 GM PO BID Constipation (Reported) mix with water, juice, soda, coffee or tea Pravastatin Sodium 20 MG TABLET 1 TAB G TUBE DAILY Heart Health (Reported) Sertraline HCl 50 MG TABLET 1 TAB G TUBE DAILY Mental Health (Reported) Current Medications: Current Medications Sig/Brian Start time Last Medication Dose Route Stop Time Status Admin Acetaminophen 650 MG Q6P PRN 04/26 0500 AC PO Albuterol Sulfate 3 ML TID 04/26 1400 AC 04/27 INH 1840 Aspirin 81 MG DAILY 04/26 0900 AC 04/27 PO 0811 Azithromycin 250 MG DAILY 04/27 0929 AC 04/27 PO 1133 Ceftriaxone Sodium 1,000 MG DAILY 04/27 0645 AC 04/27 IV 0842 Clobazam 10 MG QPM 04/26 2100 AC 04/27 PO 205 Dexamethasone 4 MG Q6 04/26 0600 AC 04/28 PO 0514 Doxazosin Mesylate 2 MG QPM 04/26 2100 AC 04/27 PO 2058 Insulin Aspart 0 Q6 04/27 1800 AC 04/28 SC 0519 Insulin Aspart 0 TIDAC 04/27 1700 DC SC Insulin Aspart 0 TIDAC 04/26 0800 DC 04/27 SC 1138 Ipratropium [place] 2.5 ML TID 04/26 1400 AC 04/27 INH 1839 Lacosamide 200 MG BID 04/26 09 AC 04/27 PO 205 Levetiracetam 1,000 MG Q8 04/26 0600 AC 04/28 G TUBE 0514 Levothyroxine Sodium 0.025 MG DAILY AC 04/26 0700 AC 04/28 PO 05 Lorazepam 2 MG QPM 04/26 2100 AC 04/27 PO 205 Lorazepam 0.5 MG BID PRN 04/26 1230 AC PO 05/03 1229 Melatonin 6 MG QPM 04/26 2100 AC 04/27 PO 2057 Metoprolol Tartrate 25 MG Q6 04/26 06 AC 04/28 PO 05 Phenytoin 200 MG 2000 04/26 2000 AC 04/27 PEG 2059 Phenytoin 150 MG DAILY 04/26 1428 AC 04/27 PEG 0812 Polyethylene Glycol 17 GM BID PRN 04/27 1632 AC PO Polyethylene Glycol 17 GM BID 04/26 0900 DC 04/27 PO 0811 Pravastatin Sodium 20 MG 1700 04/26 1700 AC 04/27 PO 1721 Sertraline HCl 50 MG DAILY 04/26 09 AC 04/27 PO 0811 Review of Systems Review of Systems: Unable to be obtained due to clinical condition. 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 Long Term Facility Services at Home: Nursing, Tube Feedings Smoking Status: Unknown If Ever Smoked ETOH Use: denies use Exam & Diagnostic Data Vital Signs and I&O Vital Signs Date Time Temp Pulse Resp B/P B/P Pulse O2 O2 Flow FiO2 Mean Ox Delivery Rate 04/28 626 98.0 85 20 120/72 95 Room Air 04/28 0514 85 120/71 04/28 0438 94 Trach Mask 30% 04/28 0000 102/64 04/28 0000 94 Trach Mask 04/27 2345 74 102/64 04/27 2130 97.0 81 19 150/78 95 Room Air 04/27 1844 97 Trach Mask 30% 04/27 1722 76 114/60 04/27 1600 98 Trach Mask 30% 04/27 1459 97.9 75 18 113/63 99 Trach Mask 04/27 1133 89 118/62 04/27 0821 93 Trach Mask 30% 04/27 0800 94 Trach Mask 30% Intake & Output 04/28 0800 04/28 0000 04/27 1600 Intake Total 404 82 4502 Output Total Balance 297 44 9919 Intake, IV 0 Intake, Tube 240 80 700 Feeding Intake, Tube 200 400 Irrigant Number 6 2 Bowel Movements Patient 72.773 kg 73.539 kg Weight Weight Bed scale Measurement Method Physical Exam General Appearance: no apparent distress, alert, awake, comfortable, trach in place Head: atraumatic Eyes: Bilateral: PERRL, EOMI. Respiratory: normal breath sounds, chest non-tender, no respiratory distress, quiet respiration Cardiovascular: regular rate/rhythm Gastrointestinal: normal bowel sounds, soft, non-tender Extremities: no edema Neurologic/Psych: awake, alert, motor weakness, motor/sensory deficits, non- verbal Skin: intact, warm/dry Last 48 Hours of Lab Results: Laboratory Tests 04/27 09 Chemistry Sodium (137 - 145 mmol/L) 134 L Potassium (3.5 - 5.1 mmol/L) 4.8 Chloride (98 - 107 mmol/L) 102 Carbon Dioxide (22 - 30 mmol/L) 25 Anion Gap (5 - 16) 8 BUN (9 - 20 mg/dL) 13 Creatinine (0.7 - 1.2 mg/dL) 0.2 L Estimated GFR (>60 ml/min) > 60 BUN/Creatinine Ratio (7 - 25 %) 65.0 H Hematology CBC w Diff NO MAN DIFF REQ WBC (4.8 - 10.8 /CUMM) 20.8 H RBC (4.70 - 6.10 /CUMM) 2.66 L Hgb (14.0 - 18.0 G/DL) 7.7 L Hct (42 - 52 %) 23.5 L MCV (80.0 - 94.0 FL) 88.1 MCH (27.0 - 31.0 PG) 28.7 MCHC (33.0 - 37.0 G/DL) 32.6 L RDW (11.5 - 14.5 %) 16.8 H Plt Count (130 - 400 /CUMM) 565 H MPV (7.4 - 10.4 FL) 6.7 L Gran % (42.2 - 75.2 %) 78.3 H Lymphocytes % (20.5 - 51.1 %) 10.6 L Monocytes % (1.7 - 9.3 %) 10.9 H Eosinophils % (0 - 5 %) 0.2 Basophils % (0.0 - 2.0 %) 0 Absolute Granulocytes (1.4 - 6.5 /CUMM) 16.3 H Absolute Lymphocytes (1.2 - 3.4 /CUMM) 2.2 Absolute Monocytes (0.10 - 0.60 /CUMM) 2.3 H Absolute Eosinophils (0.0 - 0.7 /CUMM) 0 Absolute Basophils (0.0 - 0.2 /CUMM) 0 Imaging/Other Studies: CT Abdomen/Pelvis 04/26/2018: Nonspecific mesenteric soft tissue focus within the right lower quadrant measuring 2.6 x 3.7 cm. There is an adjacent conglomeration of mesenteric lymph nodes. The mass, the aforementioned mass lesion may represents an enlarged lymph node. There is mild adjacent mesenteric fat stranding. This appearance is nonspecific and could be indicative of mesenteric adenitis, though that this represents lymphadenopathy secondary to a neoplastic process cannot be excluded. It is noted that a follow-up contrast-enhanced chest CT is recommended. Consider extension of the exam to include the abdomen and pelvis when the follow-up is obtained. Airspace opacification within the posterior basal segment of the left lower lobe. While this likely represents atelectasis, a developing pneumonia cannot be excluded. Recommendation is for a followup chest series to be obtained following treatment and/or resolution of symptoms to assure resolution of this appearance. Assessment/Plan Assessment: Mr. 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 Since admission, he is noted to have GNR bacteremia. He is currently being treated with antibiotics. He is stable today. He is non-verbal. He has right side hemiparesis and left sided weakness. Clinically, he has poor prognosis and poor performance status. He was deem not a radiation candidate in 02/2018. He has squamous cell carcinoma of unknown primary but likely lung. He has a soft tissue in the right hilar/suprahilar seen on CTA of the right upper extremity. He does not seem to be a candidate for systemic therapy. Hospice was recommended previously. This is reasonable given his condition. If further work up is desired, CT with contrast of the chest, abdomen, and pelvis may be done or PET scan as an outpatient. He will need biopsy of any new lesion seen. Again, it is unlikely that he would be a candidate for therapy given current clinical condition. Recommendations: Metastatic squamous cell carcinoma of unknown primary: -Consider hospice -CT chest/abdomen/pelvis with contrast for further workup if desired -PET as outpatient if pursuing work up -Will need biopsy of any new lesion peripherally if needed GNR bacteremia: -Management as per primary Problem List: 1. Brain metastases 2. Sepsis Other Findings/Comments: Please call [phone] Consult Acknowledgment - Thank you for your consult request.
--- NOTE | 2018-04-28 08:01 | PN- Housestaff ---
David ANDREW,Nahun 04/28/18 0800: Subjective Follow-up For: UTI Subjective: Seen and examined at [facility]. Pt is sleepy but awoken by sternal rub. He is non verbal but able to follow verbal commands (able to squeeze hand) He remains afebrile, on day 3 of ABX. No acute o/n event reported byu nursing staff Review of Systems Constitutional: Reports: see HPI. Objective Last 24 Hrs of Vital Signs/I&O Vital Signs Date Time Temp Pulse Resp B/P B/P Pulse O2 O2 Flow FiO2 Mean Ox Delivery Rate 04/28 828 93 Trach Mask 30% 04/28 08 Trach Mask 04/28 0626 98.0 85 20 120/72 95 Room Air 04/28 0514 85 120/71 04/28 0438 94 Trach Mask 30% 04/28 0000 102/64 09 0000 94 Trach Mask 04/27 2345 74 102/64 04/27 2130 97.0 81 19 150/78 95 Room Air 04/27 1844 97 Trach Mask 30% 04/27 1722 76 114/60 04/27 1600 98 Trach Mask 30% 04/27 1459 97.9 75 18 113/63 99 Trach Mask 04/27 1133 89 118/62 Intake & Output 04/28 1600 04/28 0800 09 0000 Intake Total 440 80 Output Total Balance 440 80 Intake, Tube 240 80 Feeding Intake, Tube 200 Irrigant Number 6 Bowel Movements Patient 72.773 kg Weight Weight Bed scale Measurement Method Physical Exam General Appearance: mildly lethargic,awoken by verbal stimuli Skin: decubitus ulcers (present on admission) Skin Temp/Moisture Exam: Warm/Dry Cardiovascular: Regular Rate, Normal S1, Normal S2 Lungs: rhonchi b/l Abdomen: Normal Bowel Sounds, Soft Neurological: right sided weakness (chronic) Extremities: No Edema Assessment/Plan Assessment: 62-year-old gentleman with a past medical history significant for hypertension, hyperlipidemia, BPH, COPD, type 2 diabetes, anxiety, recent seizures with imaging remarkable for multiple brain lesions, mesenteric ischemia status post SMA thrombectomy and bowel resection in December 2017, tracheostomy, PEG placement, biopsy-proven anesthetics, cell carcinoma of unknown origin was brought in from senior living facility for evaluation of right upper extremity coldness and absence radial pulses. Associated symptoms included chills. His ED workup was remarkable for gram-negative UTI and gram-negative bacteremia. Chest x-ray was suggestive of a retrocardial left lung pneumonia. Patient was admitted to general medicine floor for treatment and management of UTI, bacteremia and pneumonia. Impression * Clinical finding of cold left upper extremity with absent radial pulse. With CTA benign for any arterial compromise. * Pneumonia. Patient is reported at senior living facility to have head putrid sputum, cough and now has radiological finding suggestive of left lobe pneumonia. * UTI. Urine culture is growing gram-negative rods. * Bacteremia. Gram-negative pathogen found on blood cultures. Most probable from urinary source. * Hx of malignancy with brain mets. Unknown primary but type is squamous cell carcinoma Assessment and plan Overall patient clinical status is poor, when considering his metastatic brain lesions, tracheostomy use, and PEG use.He still appears mildy lethargic, even though he is more awake compared to yesterday. He remained afebrile o/n however his wbc has increased and growing E.coli that has intermediate susceptibilty to ceftriaxone. High probability of ESBL, will start Meropenem. Oncology saw patient and provided us with more detail of patients poor prognosis, prior barbie knife treatment, and the fact that he is not a candidate for any radiation or chemo. His biopsy from [place] is remarkable for metastatic squamous carcinoma with primary not identified. Today, we will sit down and have a meeting with the POA regarding goals of care. Medically, patient is appropriate for hospice. Problem List: 1. UTI (urinary tract infection) Pain Ratin Pain Location: n/a Pain Goal: Remain pain free Pain Plan: per pathway Tomorrow's Labs & Rationales: nicolasa Conde MD,[facility] 04/28/18 1025: Attending MD Review Statement Attending Statement Attending MD Statement: examined this patient, discuss w/resident/PA/MANAGER SPANISH, agreed w/resident/PA/MANAGER SPANISH, reviewed EMR data (avail), discussed with nursing, discussed with case mgmt, reviewed images, amended to note Attending Assessment/Plan: Patient seen and examined, he remains lethargic. He was able to open his eyes and nodded his head in yes when I asked " are you ok". H&H again with further slight drop and worsening WBC count. Vital Signs Date Time Temp Pulse Resp B/P B/P Pulse O2 O2 Flow FiO2 Mean Ox Delivery Rate 04/28 0828 93 Trach Mask 30% 04/28 0800 Trach Mask 04/28 0626 98.0 85 20 120/72 95 Room Air 04/28 0514 85 120/71 04/28 0438 94 Trach Mask 30% 04/28 0000 102/64 04/28 0000 94 Trach Mask 04/27 2345 74 102/64 04/27 2130 97.0 81 19 150/78 95 Room Air 04/27 1844 97 Trach Mask 30% 04/27 1722 76 114/60 04/27 1600 98 Trach Mask 30% 04/27 1459 97.9 75 18 113/63 99 Trach Mask 04/27 1133 89 118/62 on exam; lethargic but arousable. non verbel bot nodds his head. cv; s1, s2, rrr resp; junky bs. abd; soft, bs+, + PEG tube ext; no edema Laboratory Tests 04/28 04/28 0910 0812 Chemistry Sodium (137 - 145 mmol/L) 132 L Potassium (3.5 - 5.1 mmol/L) 4.6 Chloride (98 - 107 mmol/L) 100 Carbon Dioxide (22 - 30 mmol/L) 24 Anion Gap (5 - 16) 8 BUN (9 - 20 mg/dL) 9 Creatinine (0.7 - 1.2 mg/dL) 0.2 L Estimated GFR (>60 ml/min) > 60 BUN/Creatinine Ratio (7 - 25 %) 45.0 H Hematology CBC w Diff MAN DIFF ORDERED WBC (4.8 - 10.8 /CUMM) 23.1 H RBC (4.70 - 6.10 /CUMM) 2.60 L Hgb (14.0 - 18.0 G/DL) 7.4 *L Hct (42 - 52 %) 22.7 L MCV (80.0 - 94.0 FL) 87.5 MCH (27.0 - 31.0 PG) 28.5 MCHC (33.0 - 37.0 G/DL) 32.5 L RDW (11.5 - 14.5 %) 16.5 H Plt Count (130 - 400 /CUMM) 642 H MPV (7.4 - 10.4 FL) 6.8 L Gran % (42.2 - 75.2 %) 85.8 H Lymphocytes % (20.5 - 51.1 %) 8.8 L Monocytes % (1.7 - 9.3 %) 5.1 Eosinophils % (0 - 5 %) 0.2 Basophils % (0.0 - 2.0 %) 0.1 Absolute Granulocytes (1.4 - 6.5 /CUMM) 19.9 H Segmented Neutrophils (42.2 - 75.2 %) 76 H Band Neutrophils (0.0 - 5.0 %) 1 Absolute Lymphocytes (1.2 - 3.4 /CUMM) 2.0 Lymphocytes (20.5 - 51.1 %) 18 L Monocytes (1.7 - 9.3 %) 2 Absolute Monocytes (0.10 - 0.60 /CUMM) 1.2 H Absolute Eosinophils (0.0 - 0.7 /CUMM) 0.1 Absolute Basophils (0.0 - 0.2 /CUMM) 0 Metamyelocytes (0.0 - 1.0 %) 1 Myelocytes (0 - 0 %) 2 H Platelet Estimate (ADEQUATE) INCREASED Polychromasia 1+ Poikilocytosis 1+ Anisocytosis 1+ A/P: 62 y/o M with pmh sig for seizures, known brain metastases, hypertension, hyperlipidemia, COPD, BPH, urinary incontinence, GERD, right-sided hemiparesis initially brought in with cold rue, CTA TUE was neg for any vascular compromise but did show sig hilar lymphadenopathy, right hilar or suprahilar soft tissue focus. Pt is admitted with PNA, UTI, Bacteremia and has metastatic disease with unknown primary and reported brain mets. Also has hyponatremia and leukocytosis. Appreciate oncology input. Patient has squamous cell metastatic disease with unknown primary. Noted in oncologist note, patient has had multiple admissions to [facility]. He has had history of mesenteric ischemia with SMA thrombectomy and bowel resection. He has received gamma knife for the brain lesions. Apparently he was discharged from [facility] with the plan for further hospice care in February 2018. At this point prognosis remains poor. Patient is getting treated for UTI/ bacteremia and pneumonia. Will follow up on the final cultures and adjust antibiotics. Noted an increase in the leukocytosis. Will broaden the antibiotic coverage and adjust antibiotics once sensitivities are back. Will switch ceftriaxone to ceftazidime for now. Continue azithromycin till we have further culture results back. Noted a further drop in H&H. I will speak with patient's significant other for further goals of care. If plan is to continue the treatment, patient will need transfusion. Patient would also require more imaging and likely GI evaluation in that situation. If on the other hand she agrees for palliative/comfort care then will call hospice. Continue the rest of the Mx. DVT px; ALPS. Lengthy discussion again today with patient's significant other/conservator as well as the patient himself. That meeting included myself, PGY 3 Dr. Wilson, case management Krista Tatum and Christianne, Patient's RN Izabel. Explained about patient's prognosis to the patient and the significant other/conservator. Prognosis is poor. As noted in the oncologist note, patient is a good candidate for hospice. He is not a candidate for any further treatments for his cancer. At this point he is getting treated with antibiotics for infection. He did have a drop in his H&H but will hold off on further transfusion. Patient is willing to be comfortable at this point. Will consult hospice. Case management to find out about his hospice benefit. We will also call palliative care consult to Dr. Roman to help us decide about further decision making in his goals of care. Patient has a trach alejo PEG.
[2018-04-28 09:37] LABS: EOSINOPHIL % 0.2 % (0-5); HEMATOCRIT 22.7 % (42-52); MEAN CORPUSCULAR HGB CONC 32.5 G/DL (33.0-37.0); MEAN CORPUSCULAR VOLUME 87.5 FL (80.0-94.0)
[2018-04-28 09:41] LABS: ABSOLUTE BASOPHIL COUNT 0 /CUMM (0.0-0.2); ABSOLUTE EOSINOPHIL COUNT 0.1 /CUMM (0.0-0.7); ABSOLUTE GRANULOCYTE CT 19.9 /CUMM (1.4-6.5); ABSOLUTE MONOCYTE COUNT 1.2 /CUMM (0.10-0.60); BASOPHIL % 0.1 % (0.0-2.0); GRANULOCYTE % 85.8 % (42.2-75.2); MEAN CORPUSCULAR HGB 28.5 PG (27.0-31.0); MEAN PLATELET VOLUME 6.8 FL (7.4-10.4); PLATELET COUNT 642 /CUMM (130-400); RBC DISTRIBUTION WIDTH 16.5 % (11.5-14.5); WHITE BLOOD CELL COUNT 23.1 /CUMM (4.8-10.8)
[2018-04-28 14:33] VITALS: BP 122/70
[2018-04-28 18:37] VITALS: BP 120/70
[2018-04-28 21:35] VITALS: BP 146/80
[2018-04-29 06:40] VITALS: BP 110/62
[2018-04-29 06:55] VITALS: BP 110/62
[2018-04-29 08:28] LABS: ABSOLUTE BASOPHIL COUNT 0 /CUMM (0.0-0.2); ABSOLUTE EOSINOPHIL COUNT 0 /CUMM (0.0-0.7); ABSOLUTE GRANULOCYTE CT 18.4 /CUMM (1.4-6.5); ABSOLUTE LYMPH COUNT 2.1 /CUMM (1.2-3.4); ABSOLUTE MONOCYTE COUNT 1.6 /CUMM (0.10-0.60); BASOPHIL % 0.1 % (0.0-2.0); EOSINOPHIL % 0.2 % (0-5); HEMATOCRIT 23.9 % (42-52); MEAN CORPUSCULAR HGB 29.2 PG (27.0-31.0); MEAN CORPUSCULAR HGB CONC 33.8 G/DL (33.0-37.0); MEAN CORPUSCULAR VOLUME 86.3 FL (80.0-94.0); MEAN PLATELET VOLUME 6.6 FL (7.4-10.4); PLATELET COUNT 614 /CUMM (130-400); RBC DISTRIBUTION WIDTH 16.6 % (11.5-14.5); RED BLOOD CELL CT 2.76 /CUMM (4.70-6.10); WHITE BLOOD CELL COUNT 22.2 /CUMM (4.8-10.8)
--- NOTE | 2018-04-29 08:58 | PN- Housestaff ---
See Addendum Subjective Follow-up For: UTI LLL pneumonia E. coli bacteremia metastatic cancer to brain, squamous, unknown primary Subjective: patient offered no complaints of pain follow commands hypoxemic despite increased fio2 from 0.35 -> 0.5 remains afebrile on meropenem Review of Systems Constitutional: Reports: see HPI. Objective Last 24 Hrs of Vital Signs/I&O Vital Signs Date Time Temp Pulse Resp B/P B/P Pulse O2 O2 Flow FiO2 Mean Ox Delivery Rate 04/29 0859 84 Trach Mask 35% 04/29 0655 84 110/62 04/29 0640 97.7 84 20 110/62 97 Trach Mask 30% 04/29 0140 93 Trach Mask 35% 04/29 0059 89 100/58 04/29 0000 94 Trach Mask 30% 04/28 2135 98.1 88 20 146/80 90 / 1855 97.8 86 20 120/70 04/28 1837 97.8 86 18 120/70 94 Trach Mask 30% 04/28 1833 93 Trach Mask 30% 04/28 1600 Trach Mask 04/28 1433 97.3 75 18 122/70 95 Trach Mask 5.0L 04/28 1408 94 Trach Mask 35% 04/28 1302 74 138/90 04/28 1226 Trach Mask 30% Intake & Output 04/29 1600 04/29 0800 04/29 0000 Intake Total 510 520 Output Total Balance 510 520 Intake, Tube 320 320 Feeding Intake, Tube 190 200 Irrigant Patient 73.482 kg Weight Physical Exam General Appearance: Alert, Moderate Distress Cardiovascular: Regular Rate, Normal S1, Normal S2, No Murmurs Lungs: tracheostomy, left lung rhonchorous anteriorly Abdomen: Normal Bowel Sounds, Soft, No Tenderness, G tube feeds Neurological: right hemiplegia Extremities: No Clubbing, No Cyanosis, No Edema, Normal Pulses Current Medications: Current Medications Sig/Brian Start time Last Medication Dose Route Stop Time Status Admin Acetaminophen 650 MG Q6P PRN 04/26 0500 AC PO Acetylcysteine 2 ML BID 04/29 0913 AC INH Albuterol Sulfate 3 ML TID 04/26 1400 AC 04/29 INH 0858 Aspirin 81 MG DAILY 04/26 0900 AC 04/29 PO 0949 Azithromycin 250 MG DAILY 04/27 09 AC 04/29 PO 0948 Ceftazidime 1,000 MG IQ8 04/28 1600 CAN IV Clobazam 10 MG QPM 09 2100 AC 04/28 PO 2153 Dexamethasone 4 MG Q6 04/26 0600 AC 04/29 PO 0655 Doxazosin Mesylate 2 MG QPM / 2100 AC 04/28 PO 2148 Insulin Aspart 0 Q6 04/27 1800 AC 04/29 SC 0654 Ipratropium [place] 2.5 ML TID 04/26 1400 DC 04/29 INH 0858 Lacosamide 200 MG BID 04/26 0900 AC 04/29 PO 0949 Levetiracetam 1,000 MG Q8 04/26 0600 AC 04/29 G TUBE 0654 Levothyroxine Sodium 0.025 MG DAILY AC 04/26 0700 AC 04/29 PO 0655 Lorazepam 2 MG QPM 04/26 2100 AC 04/28 PO 2148 Lorazepam 0.5 MG BID PRN 04/26 1230 AC PO 05/03 1229 Melatonin 6 MG QPM 04/26 2100 AC 04/28 PO 2148 Meropenem 1 GM IQ8 04/28 1600 AC 04/29 IV 0949 Metoprolol Tartrate 25 MG Q6 04/26 0600 AC 04/29 PO 0655 Patient Medication 1 ED ONE ONE 04/28 1215 DC 04/28 Teaching ED 04/28 1216 1348 Phenytoin 200 MG 2000 04/26 2000 AC 04/28 PEG 2006 Phenytoin 150 MG DAILY 04/26 1428 AC 04/29 PEG 0948 Polyethylene Glycol 17 GM BID PRN 04/27 1632 AC PO Pravastatin Sodium 20 MG 1700 04/26 1700 AC 04/28 PO 1641 Sertraline HCl 50 MG DAILY 04/26 09 AC 04/29 PO 0949 Last 24 Hrs of Lab/Marc Results Last 24 Hrs of Labs/Mics: Laboratory Tests 04/29/18 0640: CBC w Diff NO MAN DIFF REQ, RBC 2.76 L, MCV 86.3, MCH 29.2, MCHC 33.8, RDW 16.6 H, MPV 6.6 L, Gran % 83.1 H, Lymphocytes % 9.2 L, Monocytes % 7.4, Eosinophils % 0.2, Basophils % 0.1, Absolute Granulocytes 18.4 H, Absolute Lymphocytes 2.1, Absolute Monocytes 1.6 H, Absolute Eosinophils 0, Absolute Basophils 0 Assessment/Plan Assessment: 62-year-old male with HTN, HLD, COPD, BPH, DM2, anxiety, seizure, mesenteric ischemia s/p SMA thrombecomy and bowel resection (01/08) complicated ICU course now s/p tracheostomy and PEG placement, and 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 CTA negative for vascular compromise but subsequently being treated for UTI and gram-negative bacteremia, cultures positive for E. Coli. Chest x-ray and CT suggest left lung pneumonia, afebrile and worsening leukocytosis on steroids and antibiotics, now with increasing supplemental oxygen requirement awaiting hospice evaluation. Cold LUE with absent radial pulse: CTA negative for arterial compromise LLL Pneumonia: purulent sputum, cxr and CT suggestive of left lobe pneumonia, increasing FiO2 requirement TRC evaluation Continue chest PT, supplemental oxygen titration, and nebulized breathing treatments Continue azithromycin and meropenem UTI with gram negative bacteremia: Cultures positive for E. Coli Urine culture is growing gram-negative rods. Intermediate susceptibilty to ceftriaxone Antibiotics changed to meropenem Afebrile, persistent leukocytosis Metastatic squamous cell carcinoma with brain mets: Unknown primary Right hemiplegia Oncology consulted, appreciate recommendations Given his metastatic cancer, comorbidities, overall poor clinical status s/p tracheostomy and PEG, not a candidate for any radiation or chemotherapy, hospice evaluation pending HTN: Continue metoprolol HLD: Continue pravastatin BPH: Continue doxazosin DM2: Continue accuchecks and novolog sliding scale Seizure: Continue phenytoin, ativan, vimpat, and keppra Jevity 1.2 DVT ppx-lovenox sc DNR/DNI, pending hospice Problem List: 1. UTI (urinary tract infection) 2. Brain metastases 3. Abdominal mass 4. Pneumonia 5. Sepsis Pain Ratin Pain Location: n/a Pain Goal: Pain 4 or less Pain Plan: prn Tomorrow's Labs & Rationales: cbc
[2018-04-29 09:10] LABS: GRANULOCYTE % 83.1 % (42.2-75.2)
--- NOTE | 2018-04-29 19:39 | Cons- Palliative Care ---
General Information and HPI Consulting Request Date of Consult: 04/29/18 Requested By: Jessie Conde MD Reason for Consult: pain management, non-pain symptom mgmt, care/transition planning, eval for hospice care Source family Exam Limitations unable to give history Associated Symptoms: anxiety, delirium History of Present Illness: 62M w/ metastatic cancer, now with worsening condition. The palliative care team was asked to assist with symptom management and transition to comfort care. A 1 hour meeting was held with patient's convervator and partner to discuss his condition and how we can best care for him. She expresses understanding that despite best efforts performed by his physician teams at [facility] and [place], his condition has progressed and that further treatments are unlikely to provide any benefit. To that end, she wishes to pursue comfort care for Mr. Mendez. We discussed the importance of managment of pain, anxiety, and delirium. I have explained that these symptoms are best treated with medications. I have also advised her that it is important for her to pay attention to her own health including returning home tonight to obtain necessary rest. We also discussed how the patient's G-tube feeding should be discontinued and that no further IVF are of benefit. She did ask what to expect and whether patient would be in discomfort from the discontinuation of nutiriton and hydration. She expressed understanding of my explananation that individuals approaching end of life generally do not experience a sense of hunger or thirst and that the natural progression toward end of life is associated with a gradual reduction in wakefulness with ultimate transition to end of life. I have recommended that our tactical/mobile watch officer visit with her and that we are available to answer questions and to meet any needs should they arise. Allergies/Medications Allergies: Coded Allergies: Sulfa (Sulfonamide Antibiotics) (UNKNOWN 04/26/18) enalaprilat (From VASOTEC) (UNKNOWN 04/26/18) heparin (UNKNOWN 04/26/18) Home Med List: Aspirin (Aspirin*) 81 MG TAB.CHEW 1 TAB G TUBE DAILY Heart (Reported) Clobazam (ONFI) 10 MG TABLET 10 MG G TUBE QPM Seizures (Reported) Dexamethasone 4 MG TABLET 1 TAB G TUBE Q6 . (Reported) Doxazosin Mesylate 2 MG TABLET 1 TAB G TUBE QPM Blood pressure (Reported) Insulin Lispro (Humalog) 100 UNIT/ML VIAL 0 SC ADD ADMIN CRITERIA diabetes ( Reported) Lacosamide (Vimpat) 200 MG TABLET 1 TAB G TUBE BID Seizures (Reported) Lanolin 100 % OINT...G. 1 OIN TOP BID Skin (Reported) Levetiracetam (Keppra) 500 MG/5 ML VIAL 1,000 MG G TUBE Q8 Seizures (Reported ) Levothyroxine Sodium 25 MCG TABLET 1 TAB G TUBE DAILY AC Hypothyroidism ( Reported) Lorazepam (Ativan) 2 MG/ML VIAL 1 ML G TUBE QPM Anxiety (Reported) Melatonin 3 MG TABLET 2 TAB G TUBE QPM Sleep (Reported) Metoprolol Tartrate 25 MG TABLET 1 TAB G TUBE Q6 Heart Health (Reported) Phenytoin Susp (Dilantin-125) 125 MG/5 ML ORAL.SUSP 200 MG G TUBE QPM Seizures (Reported) Phenytoin Susp (Dilantin-125) 125 MG/5 ML ORAL.SUSP 150 MG G TUBE DAILY Seizures (Reported) Polyethylene Glycol 3350 (Miralax) 17 GRAM/DOSE POWDER 17 GM PO BID Constipation (Reported) mix with water, juice, soda, coffee or tea Pravastatin Sodium 20 MG TABLET 1 TAB G TUBE DAILY Heart Health (Reported) Sertraline HCl 50 MG TABLET 1 TAB G TUBE DAILY Mental Health (Reported) Current Medications: Current Medications Sig/Brian Start time Last Medication Dose Route Stop Time Status Admin Acetaminophen 650 MG Q6P PRN 04/26 0500 DCD PO Acetylcysteine 2 ML BID 04/29 0913 DCD 04/29 INH 1336 Albuterol Sulfate 3 ML TID 04/26 1400 DCD 04/29 INH 1336 Aspirin 81 MG DAILY 04/26 09 DCD 04/29 PO 0949 Azithromycin 250 MG DAILY 04/27 09 DCD 04/29 PO 0948 Clobazam 10 MG QPM 04/26 2100 DCD 04/28 PO 2153 Dexamethasone 4 MG Q6 04/26 0600 DCD 04/29 PO 1338 Doxazosin Mesylate 2 MG QPM 04/26 2100 DCD 04/28 PO 2148 Insulin Aspart 0 Q6 04/27 1800 DCD 04/29 SC 1338 Ipratropium [place] 2.5 ML TID 04/26 1400 DC 04/29 INH 0858 Lacosamide 200 MG BID 04/26 0900 DCD 04/29 PO 0949 Levetiracetam 1,000 MG Q8 04/26 0600 DCD 04/29 G TUBE 1343 Levothyroxine Sodium 0.025 MG DAILY AC 04/26 0700 DCD 04/29 PO 0655 Lorazepam 2 MG QPM 04/26 2100 DCD 04/28 PO 2148 Lorazepam 0.5 MG BID PRN 04/26 1230 DCD PO 05/03 1229 Melatonin 6 MG QPM 04/26 2100 DCD 04/28 PO 2148 Meropenem 1 GM IQ8 04/28 1600 DCD 04/29 IV 0949 Metoprolol Tartrate 25 MG Q6 04/26 0600 DCD 04/29 PO 1338 Patient Medication 1 ED ONE ONE 04/29 1300 DC 04/29 Teaching ED 04/29 1301 1339 Phenytoin 200 MG 2000 04/26 2000 DCD 04/28 PEG 2006 Phenytoin 150 MG DAILY 04/26 1428 DCD 04/29 PEG 0948 Polyethylene Glycol 17 GM BID PRN 04/27 1632 DCD PO Pravastatin Sodium 20 MG 1700 04/26 1700 DCD 04/28 PO 1641 Sertraline HCl 50 MG DAILY 04/26 0900 DCD 04/29 PO 0949 Review of Systems Review of Systems: unable to obtain ROS Past History Medical History Neurological: seizure, brain mets cerebral edema EENT: NONE Cardiovascular: hypertension, hyperlipidemia Respiratory: COPD Gastrointestinal: GERD Hepatic: NONE Renal: benign prost hyperplasia, urinary incontinence Musculoskeletal: osteoarthritis Psychiatric: NONE Endocrine: diabetes Blood Disorders: NONE Cancer(s): 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 [facility] Facility Services at Home: Nursing, Tube Feedings Smoking Status: Unknown If Ever Smoked ETOH Use: denies use Karnofsky Performance Scale: 10 Living Will? unknown Power of Button Spindler/HCP? yes Exam & Diagnostic Data Last 24 Hrs of Vitals/I&Os: Vital Signs Date Time Temp Pulse Resp B/P B/P Pulse O2 O2 Flow FiO2 Mean Ox Delivery Rate 04/29 1600 98 Trach Mask 04/29 0859 84 Trach Mask 35% 04/29 0800 97 Trach Mask 35% 04/29 0655 84 110/62 04/29 0640 97.7 84 20 110/62 97 Trach Mask 30% 04/29 0140 93 Trach Mask 35% 04/29 0059 89 100/58 04/29 0000 94 Trach Mask 30% 04/28 2135 98.1 88 20 146/80 90 Intake & Output 04/29 1600 04/29 0800 04/29 0000 Intake Total 510 520 Output Total Balance 510 520 Intake, Tube 320 320 Feeding Intake, Tube 190 200 Irrigant Patient 162 lb Weight Physical Exam: ill appearing, in bed, NAD tracheostomy in place immobile Diagnostic Data Lab/Micro/Pathology Results: Laboratory Tests 04/29/18 0640: CBC w Diff NO MAN DIFF REQ, RBC 2.76 L, MCV 86.3, MCH 29.2, MCHC 33.8, RDW 16.6 H, MPV 6.6 L, Gran % 83.1 H, Lymphocytes % 9.2 L, Monocytes % 7.4, Eosinophils % 0.2, Basophils % 0.1, Absolute Granulocytes 18.4 H, Absolute Lymphocytes 2.1, Absolute Monocytes 1.6 H, Absolute Eosinophils 0, Absolute Basophils 0 Assessment/Plan Assessment 62M w/ metastatic cancer, approaching end of life Patient's Condition: serious Prognosis: grave Is Patient Decisional? no Case Discussed With: family, hospice Goals of Care: comfort measures only Other Recommendations: 1. Begin comfort care 2. Discontinue all non symptom relieving medications 3. Utilize morphine oral solution for pain, dyspnea 4. Treat anxiety, restlessness, breakthrough seizure with lorazepam 5. Reduce G-tube intake 6. D/C IVF 7. Ongoing supportive counseling Consult Acknowledgment - Thank you for your consult request.
== END 2018-04-29 13:49 | disposition hospice, home (50) | DRG 871 ==
LOC: ERH 21:25 → ERHI 04-26 04:50 → 2NB 04-26 04:50 → CANRESERV 04-26 05:22 → ENRESERV 04-26 05:22 → 2NB 04-26 06:23 → 2NA 04-28 17:30
PROVIDERS: Internal Medicine; Pediatrics; Student in an Organized Health Care Education/Training Program
DX: A41.9 Sepsis, unspecified organism (principal); J18.9 Pneumonia, unspecified organism; J18.1 Lobar pneumonia, unspecified organism; N39.0 Urinary tract infection, site not specified; I69.351 Hemiplegia and hemiparesis following cerebral infarction affecting right dominant side; E87.1 Hypo-osmolality and hyponatremia; C79.31 Secondary malignant neoplasm of brain; R78.81 Bacteremia; Z51.5 Encounter for palliative care; Z66 Do not resuscitate; I10 Essential (primary) hypertension; E78.5 Hyperlipidemia, unspecified; K21.9 Gastro-esophageal reflux disease without esophagitis; Z93.0 Tracheostomy status; Z88.2 Allergy status to sulfonamides; N40.1 Benign prostatic hyperplasia with lower urinary tract symptoms; N39.498 Other specified urinary incontinence; E11.9 Type 2 diabetes mellitus without complications; R91.8 Other nonspecific abnormal finding of lung field; R16.0 Hepatomegaly, not elsewhere classified; Z79.82 Long term (current) use of aspirin; Z79.4 Long term (current) use of insulin; A49.8 Other bacterial infections of unspecified site; B96.20 Unspecified Escherichia coli [E. coli] as the cause of diseases classified elsewhere
CPT/HCPCS: 2NAP; 2NBP; 36592; 71045; 74176; 81001; 82436; 87040; 87086; 87449; 87450; 93005; 93010; 94799; 96365; 96375; 99291; J0456; J0696; J0713; J2185; J3490; J7608

== ENCOUNTER 2018-04-29 13:55 | Inpatient (IN) | payer OTHER ==
[~2018-04-29 13:55] MED LIST: ASPIRIN81 M4 G TUBE; ATIVAN2 MG/1 ML G TUBE; DEXAMETHASONE4 M1 G TUBE; DILANTIN-1125 MG/51 G TUBE; DOXAZOSIN MESYLA2 M1 G TUBE; HUMALOG100 UNIT/2 SC; KEPPRA500 MG/5 M G TUBE; LANOLIN397 GM TOP; LEVOTHYROXINE25 MCG G TUBE; MELATONIN3 M4 G TUBE; METOPROLOL TART25 M1 G TUBE; MIRALAX119 GM PO; ONFI10 M1 G TUBE; PRAVASTATIN SOD20 M2 G TUBE; SERTRALINE HCL50 MG G TUBE; VIMPAT200 M1 G TUBE
[2018-04-29 14:27] VITALS: BP 132/70
--- NOTE | 2018-04-29 18:07 | History & Physical ---
Rhonda PETERSKrista 04/29/18 1734: General Information and HPI Chief Complaint: admit to hospice Source of Information: family, old records Exam Limitations: unable to give history, not alert/orientated, clinical condition Associated Symptoms: anxiety, agitation (has pulled out trach), oxygen desaturation, thick tracheal secretions History of Present Illness: 62-year-old gentleman with a past medical history significant for hypertension, hyperlipidemia, BPH, COPD, type 2 diabetes, anxiety, recent seizures with imaging remarkable for multiple brain lesions, mesenteric ischemia status post SMA thrombectomy and bowel resection in December 2017, tracheostomy, PEG placement, biopsy-proven 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 Associated symptoms included chills. His ED workup was remarkable for gram-negative UTI and gram- negative bacteremia. Chest x-ray was suggestive of a retrocardial left lung pneumonia. Patient was admitted to general medicine floor for treatment and management of UTI, bacteremia and pneumonia. His course prior to admission has been complicated and been hospitalized multiple times at [facility] (12/20/2017-01/01/2018, 01/04/2018-02/02/2018, 02/08/2018-02/10, 02/12/2018-02/15/2018, and 03/10/2018-03/31/2018). He initially presented with seizure at home. CT demonstrated intracranial lesions with vasogenic edema. He was treated with gamma knife. He has squamous cell carcinoma of unknown primary but likely lung. He has a soft tissue mass in the right hilar/suprahilar seen on CTA of the right upper extremity. He was seen by oncology at [facility] on 03/11/2018 and was felt to be not a candidate for systemic therapy given clinical condition. Recommendation at that time was hospice. He had multiple new lesions on MRI which was not amenable to more radiation at the time. Respiratory therapy reports desaturation this am to 80s with significant mucus plugging, requiring suctioning and increasing oxygen requirements. Given pt's poor prognosis prior to this admission, now complicated by bacteremia, UTI and pneumonia, decision by pt's conservator/significant other is for hospice. 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 Exam & Diagnostic Data Last 24 Hrs of Vital Signs/I&O Vital Signs Date Time Temp Pulse Resp B/P B/P Pulse O2 O2 Flow FiO2 Mean Ox Delivery Rate 04/29 1447 Trach Mask 50% 04/29 1427 98.5 87 18 132/70 92 Trach Mask Physical Exam General Appearance No Acute Distress, lethargic, opens eyes briefly HEENT Atraumatic Neck tracheostomy Cardiovascular Regular Rate, Normal S1, Normal S2 Lungs slight rhonchi left lung anteriorly, unlabored respirations, TM 50% Abdomen Soft, No Tenderness, gtube left upper quadrant Extremities No Clubbing, No Cyanosis, No Edema, cold RUE Assessment/Plan Assessment: 62 y.o. male with metastatic squamous cell carcinoma to brain, primary unknown, with e.coli bacteremia, UTI, hypoxic respiratory failure due to pneumonia. Plan: Continue meds for seizures-dilantin, keppra, vimpat, Onfi, and decadron for cerebral edema Continue cardiac meds Decrease tube feedings from 40cc/hr to 20cc/hr Morphine 2 mg IV every 2 hours as needed for pain/dyspnea Mucomyst and TRC for thick secretions from trach Robinul as needed for copious secretions Ativan 1mg IV every 8 hours for anxiety. Discontinue soft wrist restraints. Plan discussed with Rupinder (S.O.), who prefers that tube feedings gradually discontinued and not abruptly stopped; also with odd bundle worker and nursing. Jessie Conde MD 04/30/18 1124: Assessment/Plan Plan: Agree with above.
[2018-04-30 00:25] VITALS: BP 122/76
[2018-04-30 05:45] VITALS: BP 128/72
--- NOTE | 2018-04-30 13:43 | PN- Att Addend ---
Attending Addendum Attending Brief Note Patient seen and examined, his significant other/conservative was at the bedside. Patient looked comfortable. Vital Signs Date Time Temp Pulse Resp B/P B/P Pulse O2 O2 Flow FiO2 Mean Ox Delivery Rate 04/30 917 92 Trach Mask 50% 04/30 0549 80 128/72 04/30 0545 99.4 80 20 128/72 95 Trach Mask 30% 04/30 0051 97 Trach Mask 50% 04/30 0025 90 122/76 04/30 0019 90 122/76 04/30 0000 Trach Mask 50% 04/29 1936 95 Trach Mask 50% 04/29 1757 98.5 87 18 132/70 04/29 1600 Trach Mask 9L 04/29 1447 Trach Mask 50% 04/29 1427 98.5 87 18 132/70 92 Trach Mask on exam; awake, looks comfortable. cv; s1,s2 resp; mild scatered wheeze abd; soft, + peg no labs. 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 Patient admitted on medicine service with UTI/bacteremia as well as possible pneumonia. Tube feeds will be tapered down gradually still there off. Patient continues to remain on antiseizure medications for comfort. Beta-mauricio and Cardura was discontinued by me. I had a discussion with patient's significant other/ conservator. She clearly mentioned to me that she trusts the doctors and the nurses. She does not want to know what medications are tapered and if the tube feeds are tapered down further because that gives her stress. She is totally leaving it up to the medical team to adjust patient's medications. At this point I will continue the rest of the medications as it is. Continue hospice care.
--- NOTE | 2018-04-30 13:53 | PN- Hospice ---
Subjective Subjective: Appears comfortable. Opens eyes intermittently, unable to communicate verbally. Utilized no morphine; ativan x 2 overnight for intermittent restlessness. Incontinent of urine. Low grade fever this am. Tube feeding at 20mg/hr. Cardiac medications discontinued earlier today. Review of Systems Constitutional: Reports: see HPI. Objective Last 24 Hrs of Vital Signs/I&O Vital Signs Date Time Temp Pulse Resp B/P B/P Pulse O2 O2 Flow FiO2 Mean Ox Delivery Rate 04/30 0917 92 Trach Mask 50% 04/30 0549 80 128/72 04/30 0545 99.4 80 20 128/72 95 Trach Mask 30% 04/30 0051 97 Trach Mask 50% 04/30 0025 90 122/76 04/30 0019 90 122/76 04/30 0000 Trach Mask 50% 04/29 1936 95 Trach Mask 50% 04/29 1757 98.5 87 18 132/70 04/29 1600 Trach Mask 9L 04/29 1447 Trach Mask 50% 04/29 1427 98.5 87 18 132/70 92 Trach Mask Intake & Output 04/30 1600 04/30 0800 04/30 0000 Intake Total 560 440 Output Total Balance 560 440 Intake, Tube 360 240 Feeding Intake, Tube 200 200 Irrigant Number 1 Bowel Movements Physical Exam General Appearance: slightly restless Head: atraumatic Ears, Nose, Throat: tracheostomy Respiratory: rhonchi, no respiratory distress, unlabored Cardiovascular: regular rate/rhythm Abdomen: gtube intact, soft and nontender Extremities: no edema, mottling Current Medications: Current Medications Sig/Brian Start time Last Medication Dose Route Stop Time Status Admin Acetaminophen 650 MG Q4P PRN 04/29 1415 AC MS Acetylcysteine 2 ML BID 04/29 2100 AC 04/30 INH 05/02 2100 0849 Albuterol Sulfate 3 ML BID 04/29 2100 AC 04/30 INH 0849 Bisacodyl 10 MG DAILY NEEDED PRN 04/29 1415 AC MS Clobazam 10 MG QPM 04/29 2100 AC 04/29 PO 2045 Dexamethasone 4 MG Q6 04/29 1800 AC 04/30 PO 1346 Doxazosin Mesylate 1 MG QPM 04/29 2100 DC 04/29 PO 2045 Glycerin/Mineral Oil 1 CHESTER Q8P PRN 04/29 1415 AC TOP Glycopyrrolate 200 MCG Q4P PRN 04/29 1415 AC IV Lacosamide 0 .STK-MED ONE 04/30 1027 DC PO Lacosamide 200 MG BID 04/29 2100 AC 04/30 PO 1025 Levetiracetam 1,000 MG Q8 04/29 2200 AC 04/30 G TUBE 1346 Lorazepam 1 MG Q8 04/29 1417 AC 04/30 IV 1346 Lorazepam 1 MG Q4P PRN 04/29 1415 AC 04/30 IV 0424 Metoprolol Tartrate 25 MG BID 04/30 1020 CAN PO Metoprolol Tartrate 25 MG Q6 04/29 1800 DC 04/30 PO 0549 Morphine Sulfate 2 MG Q2P PRN 04/29 1415 AC IV Phenytoin 150 MG DAILY 04/30 09 AC 04/30 PEG 1020 Phenytoin 200 MG 2000 04/29 2000 AC 04/29 PEG 2045 Assessment/Plan Hospice Assessment/Recommendations: 62 y.o. male with metastatic squamous cell carcinoma to brain, primary unknown, with e.coli bacteremia, UTI, hypoxic respiratory failure due to pneumonia. Continue current regimen with goal of discontinuing tube feed this weekend. Problem List: 1. Brain metastases 2. Pneumonia 3. Acute respiratory failure with hypoxia 4. UTI (urinary tract infection)
[2018-05-01 06:20] VITALS: BP 114/66
--- NOTE | 2018-05-01 16:15 | PN- Att Addend ---
Attending Addendum Attending Brief Note Patient seen and examined, he is sleeping. Looks comfortable. Patient's significant other is at bedside. Vital Signs Date Time Temp Pulse Resp B/P B/P Pulse O2 O2 Flow FiO2 Mean Ox Delivery Rate 05/01 1205 Trach Mask 50% 05/01 0834 92 Trach Mask 50% 05/01 0800 Trach Mask 50% 05/01 0800 Trach Mask 50% 05/01 0620 98.6 87 18 114/66 94 Trach Mask 05/01 0045 94 Trach Mask 50% 05/01 0000 Trach Mask 50% 04/30 2216 Trach Mask 50% 04/30 1910 91 Trach Mask 50% 04/30 1654 Trach Mask 50% on exam; awake, looks comfortable. cv; s1,s2 resp; mild scatered wheeze abd; soft, + peg no labs. 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 Patient admitted on medicine service with UTI/bacteremia as well as possible pneumonia. Tube feeds will be tapered down gradually till off. Patient continues to remain on antiseizure medications for comfort. Beta-mauricio and Cardura was discontinued by me. I had a discussion with patient's significant other/ conservator. She clearly mentioned to me that she trusts the doctors and the nurses. She does not want to know what medications are tapered and if the tube feeds are tapered down further because that gives her stress. She is totally leaving it up to the medical team to adjust patient's medications. Continue to taper TFs, and continue current Mx.
[2018-05-02 06:20] VITALS: BP 114/58
--- NOTE | 2018-05-02 10:03 | PN- Att Addend ---
Attending Addendum Attending Brief Note Patient seen and examined, looks comfortable except that he was breathing a little fast. Patient's significant other is sitting at bedside. Vital Signs Date Time Temp Pulse Resp B/P B/P Pulse O2 O2 Flow FiO2 Mean Ox Delivery Rate 05/02 0940 Trach Mask 50% 05/02 0620 99.1 108 16 114/58 91 Trach Mask 05/01 2232 Trach Mask 50% 05/01 2158 98.3 05/01 2035 98.3 05/01 1945 Trach Mask 50% 05/01 1936 100.5 05/01 1931 100.5 05/01 1615 93 Trach Mask 50% 05/01 1600 Trach Mask 50% 05/01 1205 Trach Mask 50% On exam: awake, looks comfortable. cv; s1,s2 resp; mild scatered wheeze tachypnic abd; soft, + peg no labs. 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 Patient admitted on medicine service with UTI/bacteremia as well as possible pneumonia. Tube feeds will be tapered down gradually till off. Patient continues to remain on antiseizure medications for comfort. I have decreased the frequency of Ativan 2 nightly as needed. Continue to taper TFs, and continue current Mx. Discussed with patient's significant other.
[2018-05-03 06:20] VITALS: BP 110/60
--- NOTE | 2018-05-03 13:16 | PN- Hospice ---
Subjective Subjective: Pt. resting with eyes closed, responsive to voice and touch. Dyspneic with respirations 32. Received morphine x 4 and ativan x 5 past 24 hours. Nursing reports this am pt had been restless and fidgety -reponded well to ativan and morphine. Tube feedings at 10 cc/hr. Low grade fever yesterday. Incontinent of urine. Review of Systems Constitutional: Reports: see HPI. Objective Last 24 Hrs of Vital Signs/I&O Vital Signs Date Time Temp Pulse Resp B/P B/P Pulse O2 O2 Flow FiO2 Mean Ox Delivery Rate 05/03 0853 Trach Mask 50% 05/03 800 Trach Mask 50% 05/03 0620 98.9 93 18 110/60 92 Trach Mask 05/03 0000 Trach Mask 50% 05/02 215 Trach Mask 50% 05/02 1940 Trach Mask 50% 05/02 1858 99.0 05/02 1715 100.9 05/02 1615 93 Trach Mask 50% Intake & Output 05/03 1600 05/03 0805/03 0000 Intake Total 250 250 Output Total Balance 250 250 Intake, Tube 50 50 Feeding Intake, Tube 200 200 Irrigant Number 0 Bowel Movements Physical Exam General Appearance: well developed/nourished, no apparent distress, lethargic, dyspneic Head: atraumatic Neck: tracheostomy Respiratory: tachypneic with RR 32, unlabored, scattered rhonchi anteriorly Abdomen: G-tube site CDI, left upper quadrant Extremities: normal inspection Current Medications: Current Medications Sig/Brian Start time Last Medication Dose Route Stop Time Status Admin Acetaminophen 650 MG Q4P PRN 04/29 1415 AC 05/02 [place] 1715 Acetylcysteine 2 ML BID 04/29 2100 DC 05/02 INH 05/02 2100 194 Albuterol Sulfate 3 ML Q4P PRN 05/02 2200 AC INH Albuterol Sulfate 3 ML BID 04/29 2100 DC 05/02 INH 194 Bisacodyl 10 MG DAILY NEEDED PRN 04/29 1415 AC [place] Clobazam 10 MG QPM 04/29 2100 AC 05/02 PO 2154 Dexamethasone 4 MG Q6 04/29 1800 AC 05/03 PO 0511 Glycerin/Mineral Oil 1 CHESTER Q8P PRN 04/29 1415 AC TOP Glycopyrrolate 200 MCG Q4P PRN 04/29 1415 AC 05/03 IV 0836 Lacosamide 200 MG BID 04/29 2100 AC 05/03 PO 1058 Levetiracetam 1,000 MG Q8 04/29 2200 AC 05/03 G TUBE 0511 Lorazepam 1 MG Q1 NEEDED PRN 05/02 1015 AC 05/03 IV 1107 Lorazepam 1 MG Q8 04/29 1417 AC 05/03 IV 0511 Morphine Sulfate 2 MG Q2P PRN 04/29 1415 05/03 IV 1112 Patient Medication 1 ED ONE ONE 05/03 1045 DC Teaching ED 05/03 1046 Phenytoin 150 MG DAILY 04/30 900 AC 05/03 PEG 1058 Phenytoin 200 MG 04/29 AC 05/02 PEG 2152 Vitamin A/Vitamin D 1 CHESTER Q4P PRN 04/30 1415 TOP Assessment/Plan Hospice Assessment/Recommendations: 62 y.o. male with metastatic squamous cell carcinoma to brain, primary unknown, with e.coli bacteremia, UTI, hypoxic respiratory failure due to pneumonia. 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 Brain metastases 2. Pneumonia 3. Acute respiratory failure with hypoxia
[2018-05-04 06:51] VITALS: BP 130/60
--- NOTE | 2018-05-04 11:12 | PN- Hospice ---
Subjective Subjective: Pt. appears comfortable; significant other at bedside. Overnight pt continued to be tachypneic, has copious creamy secretions and is intermittently suctioned by respiratory therapy. Nursing reports redenned skin of axillae as well. Tube feeding discontinued yesterday. Review of Systems Constitutional: Reports: see HPI. Objective Last 24 Hrs of Vital Signs/I&O Vital Signs Date Time Temp Pulse Resp B/P B/P Pulse O2 O2 Flow FiO2 Mean Ox Delivery Rate 05/04 906 Trach Mask 50% 05/04 0651 98.0 102 36 130/60 92 05/04 0242 94 Trach Mask 50% 05/04 0100 99.0 05/04 0000 Trach Mask 50% 05/03 2215 Trach Mask 50% 05/03 221 100.6 36 05/03 220 101.5 05/03 2028 100.6 05/03 1917 Trach Mask 50% 05/03 1840 101.2 05/03 1830 40 05/03 1600 Trach Mask 50% 05/03 1530 Trach Mask 50% 05/03 1400 Trach Mask 50% 05/03 1320 32 Intake & Output 05/04 1600 05/04 0800 05/04 0000 Intake Total 330 150 Output Total Balance 330 150 Intake, IV 30 Intake, Tube 300 150 Irrigant Physical Exam General Appearance: no apparent distress, lethargic Head: atraumatic Neck: tracheostomy Respiratory: rhonchi, RR-28, TM 50% Cardiovascular: tachycardia Extremities: no edema, no mottling Skin: rash (bilat axilla macerated,red ), red moist skin intact under tracheostomy site Current Medications: Current Medications Sig/Brian Start time Last Medication Dose Route Stop Time Status Admin Acetaminophen 650 MG Q4P PRN 04/29 1415 AC 05/03 NM 1840 Albuterol Sulfate 3 ML Q4P PRN 05/02 2200 AC INH Bisacodyl 10 MG DAILY NEEDED PRN 04/29 1415 AC NM Clobazam 10 MG QPM 04/29 2100 AC 05/03 PO 212 Dexamethasone 4 MG Q6 04/29 1800 AC 05/04 PO 0609 Glycerin/Mineral Oil 1 CHESTER Q8P PRN 04/29 141 AC TOP Glycopyrrolate 200 MCG Q4P PRN 04/29 1415 AC 05/04 IV 0609 Lacosamide 200 MG BID 04/29 2100 AC 05/04 PO 0906 Levetiracetam 1,000 MG Q8 04/29 2200 AC 05/04 G TUBE 0607 Lorazepam 1 MG Q6 05/03 1800 AC 05/04 IV 0609 Lorazepam 1 MG Q1 NEEDED PRN 05/02 1015 AC 05/04 IV 1038 Lorazepam 1 MG Q8 04/29 1417 DC 05/03 IV 0511 Morphine Sulfate 2 MG Q4 05/03 1400 AC 05/04 IV 0956 Morphine Sulfate 2 MG Q2P PRN 04/29 1415 AC 05/03 IV 2033 Phenytoin 150 MG DAILY 04/30 900 AC 05/04 PEG 0906 Phenytoin 200 MG 2000 04/29 2000 AC 05/03 PEG 2127 Vitamin A/Vitamin D 1 CHESTER Q4P PRN 04/30 1415 TOP Assessment/Plan Hospice Assessment/Recommendations: 62 y.o. male with metastatic squamous cell carcinoma to brain, primary unknown, with e.coli bacteremia, UTI, hypoxic respiratory failure due to pneumonia. Tachypnea and tachycardia-increase morphine to 3 mg IV every 4 hours scheduled and every 2 hrs as needed, increase Ativan interval to every 4 hours Secretions-Increase scopolamine patch to 2 and continue Robinul Regi axillae-nystatin powder bid A&D ointment tid to skin under trach dressing Problem List: 1. Brain metastases 2. Pneumonia 3. Acute respiratory failure with hypoxia
[2018-05-05 06:29] VITALS: BP 120/62
--- NOTE | 2018-05-05 15:59 | PN- Hospice ---
Subjective Subjective: Pt. is tachypneic, clammy. Per nursing, had been comfortable with RR below 20 until just recently. Significant other at bedside. Receiving schduled morphine and ativan and had not needed any as needed doses overnight. Has been febrile to 101.4 this am, receiving APAP rectally with good effect. Review of Systems Constitutional: Reports: see HPI. Objective Last 24 Hrs of Vital Signs/I&O Vital Signs Date Time Temp Pulse Resp B/P B/P Pulse O2 O2 Flow FiO2 Mean Ox Delivery Rate 05/05 1300 Trach Mask 70% 05/05 1120 Trach Mask 70% 05/05 1105 99.2 05/05 1006 100.6 05/05 0903 Trach Mask 70% 05/05 0815 99.8 05/05 0800 Trach Mask 70% 05/05 0639 101.4 05/05 0629 101.4 116 20 120/62 92 Trach Mask 05/05 0355 99.6 05/05 0253 101.0 05/05 0133 93 Trach Mask 50% 05/05 0000 Trach Mask 50% 05/04 2204 22 05/04 1631 99 Trach Mask 50% Intake & Output 05/05 1600 05/05 0800 05/05 0000 Intake Total 360 20 Output Total Balance 360 20 Intake, IV 60 20 Intake, Tube 300 Irrigant Number 0 Bowel Movements Physical Exam General Appearance: mild distress, tachypneic Head: atraumatic Respiratory: RR-36, increased effort Cardiovascular: tachycardia Extremities: no edema Current Medications: Current Medications Sig/Brian Start time Last Medication Dose Route Stop Time Status Admin Acetaminophen 650 MG Q4P PRN 04/29 1415 AC 05/05 MA 1006 Albuterol Sulfate 3 ML Q4P PRN 05/02 2200 AC INH Bisacodyl 10 MG DAILY NEEDED PRN 04/29 1415 AC MA Clobazam 10 MG QPM 04/29 2100 AC 05/04 PO 2051 Dexamethasone 4 MG Q6 04/29 1800 AC 05/05 PO 1424 Glycerin/Mineral Oil 1 CHESTER Q8P PRN 04/29 1415 AC TOP Glycopyrrolate 200 MCG Q4P PRN 05/05 1545 AC SC Glycopyrrolate 200 MCG Q4P PRN 04/29 1415 DC 05/05 IV 0249 Lacosamide 0 .STK-MED ONE 09/11 2043 DC PO Lacosamide 200 MG BID 04/29 2100 AC 05/05 PO 0953 Levetiracetam 1,000 MG Q8 04/29 2200 AC 05/05 G TUBE 1339 Lorazepam 1 MG Q4 05/05 1800 AC SC Lorazepam 1 MG Q1 NEEDED PRN 05/05 1545 AC 05/05 SC 1550 Lorazepam 1 MG Q4 05/04 1400 DC 05/05 IV 1339 Lorazepam 1 MG Q1 NEEDED PRN 05/02 1015 DC 05/04 IV 1038 Morphine Sulfate 3 MG Q4 05/05 1800 AC SC Morphine Sulfate 3 MG Q2P PRN 05/05 1545 AC 05/05 SC 1555 Morphine Sulfate 3 MG Q4 05/04 1400 DC 05/05 IV 1339 Morphine Sulfate 3 MG Q2P PRN 05/04 1130 DC 05/05 IV 1525 Nystatin 1 CHESTER BID 05/04 2100 AC 05/05 TOP 0952 Phenytoin 150 MG DAILY 04/30 09 AC 05/05 PEG 0951 Phenytoin 200 MG 2000 04/29 2000 AC 05/04 PEG 2052 Scopolamine HBr 1 PAT Q72H 05/04 1800 AC 05/04 TOP 1833 Scopolamine HBr 2 PAT Q72 05/04 1430 AC 05/04 TOP 1745 Vitamin A/Vitamin D 1 CHESTER TID 05/04 1425 AC 05/05 TOP 0953 Vitamin A/Vitamin D 1 CHESTER Q4P PRN 04/30 1415 TOP Assessment/Plan Hospice Assessment/Recommendations: 62 y.o. male with metastatic squamous cell carcinoma to brain, primary unknown, with e.coli bacteremia, UTI, hypoxic respiratory failure due to pneumonia. Actively dying. IV access lost as morphine being administered. Nursing to place SC buttons and all meds changed from IV to SC route. To receive morphine and ativan as soon as access obtained. Support provided to significant other, hospice/home health aide here as well. Problem List: 1. Brain metastases 2. Acute respiratory failure with hypoxia 3. Pneumonia
--- NOTE | 2018-05-06 07:52 | Discharge Summary ---
Visit Information Visit Dates Admission Date: 04/29/18 Discharge Date: 05/05/18 Hospital Course Course Attending Physician: Jessie Conde MD Primary Care Physician: Estrellita Bueno MD Hospital Course: 62 y.o. male with metastatic squamous cell carcinoma to brain, primary unknown, with e.coli bacteremia, UTI, hypoxic respiratory failure due to pneumonia, admitted to hospice service. His tube feedings via PEG were discontinued, seizure medicines continued. Pt was kept comfortable with morphine for dyspnea, ativan for anxiety/restlessness and scopolamine and Robinul for secretions, until he passed peacefully with his family at bedside. Allergies: Coded Allergies: Sulfa (Sulfonamide Antibiotics) (UNKNOWN 04/26/18) enalaprilat (From VASOTEC) (UNKNOWN 04/26/18) heparin (UNKNOWN 04/26/18) Disposition Summary Disposition Principal Diagnosis: Metastatic squamous cell carcinoma of the brain, primary unknown Respiratory failure, acute on chronic, hypoxic Pneumonia, left lung Additional Diagnosis: Dysphagia Seizure disorder h/o PEG tube placement h/o tracheostomy Discharge Disposition: Discharge Instructions General Discharge Information Code Status: Hospice Patient's Diet: N/A Patient's Activity: N/A Follow-Up Instructions/Appts: N/A Copies To: Myles ANDREW,Estrellita Clements; Saji ANDREW,Lerma
== END 2018-05-05 16:05 | disposition expired | DRG 871 ==
LOC: 2NA 13:55 → ENTRNSPT 05-05 19:17 → CMPTRNSPT 05-05 19:32
DX: A41.51 Sepsis due to Escherichia coli [E. coli] (principal); J18.9 Pneumonia, unspecified organism; J96.21 Acute and chronic respiratory failure with hypoxia; C79.31 Secondary malignant neoplasm of brain; N39.0 Urinary tract infection, site not specified; Z51.5 Encounter for palliative care; Z88.2 Allergy status to sulfonamides; Z88.8 Allergy status to other drugs, medicaments and biological substances; Z93.1 Gastrostomy status; R13.10 Dysphagia, unspecified; Z93.0 Tracheostomy status; E78.5 Hyperlipidemia, unspecified; N40.1 Benign prostatic hyperplasia with lower urinary tract symptoms; N39.498 Other specified urinary incontinence; E11.9 Type 2 diabetes mellitus without complications
CPT/HCPCS: 2NAP; J7608